=== PATIENT | female | born 2000 | race Caucasian/White ===

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

== ENCOUNTER 2021-12-06 12:30 | Emergency (ER) | payer OTHER, MEDICAID, SELFPAY ==
[2021-12-06 13:01] VITALS: BP 127/73; PULSE 94; RESP 18; TEMP 36.6; O2SAT 95; BMI 40.3
--- NOTE | 2021-12-06 15:05 | ED.HA ---
HPI - Headache General Chief Complaint: Headache Stated Complaint: headaches/neck pain Time Seen by Provider: 12/06/21 14:43 Mode of arrival: Ambulatory History of Present Illness HPI Narrative: Patient is a healthy 20-year-old female who presents with headache ongoing for the last 1 week. She says she has been taking ibuprofen pretty much around the clock she says it does help when it wears off her headache comes back. She denies any nausea or vomiting. She is not sensitive to light. She has no numbness tingling or weakness. He has really gotten headaches like this in the past. She was seen at a walk-in clinic who told her she was just dehydrated she says that she has been drinking lots of water she is not dizzy or lightheaded she has no chest pain palpitations. She also has been complaining of some head pain. But she denies any fever or chills. She is able to move her neck is now without any sort of difficulty. Related Data Previous Rx's Medication Instructions Recorded eletriptan 20 mg tablet (Relpax) 20 mg PO Q2-4H PRN migraine 12/06/21 headache #7 tabs hydrocodone 5 mg-acetaminophen 325 1 tab PO Q6H PRN pain #10 tabs 12/06/21 mg tablet Allergies Allergy/AdvReac Type Severity Reaction Status Date / Time No Known Drug Allergies Allergy Verified 12/06/21 13:07 Review of Systems Review of Systems Narrative: GENERAL: Denies chills,fever HEENT: Denies throat pain RESPIRATORY: Denies dyspnea, cough, wheezing CARDIOVASCULAR: Denies chest pain, palpitations GASTROINTESTINAL: Denies nausea, vomiting MUSCULOSKELETAL: Denies extremity pain, injury SKIN: No rash, no laceration, no pruritus NEUROLOGIC: + headache, see HPI 8 point review of systems is negative except for those stated above and HPI Patient History Social History Smoking Status: Never smoker Smoking Status: Never smoker Substance Use Type: does not use Exam Initial Vital Signs Initial Vital Signs: Vital Signs Temperature 97.8 F 12/06/21 13:01 Pulse Rate 94 H 12/06/21 13:01 Respiratory Rate 18 12/06/21 13:01 Blood Pressure 127/73 12/06/21 13:01 Pulse Oximetry 95 12/06/21 13:01 Oxygen Delivery Method 12/06/21 13:01 GENERAL: Patient is a well-appearing young 20-year-old female in no acute distress HEENT: Head atraumatic,EOMI, pupils reactive, face symmetric, moist mucous membranes NECK: Supple no vertebral tenderness or step-off CARDIOVASCULAR: Regular rate and rhythm without murmurs, rubs or gallops. RESPIRATORY: Breath sounds equal bilaterally, no wheezes rales or rhonchi. ABDOMEN: Soft, nontender. Normoactive bowel sounds all 4 quadrants. No guarding or rebound. EXTREMITIES: Normal range of motion, no clubbing or edema. Neurovascularly intact NEUROLOGICAL: Alert and oriented x4.Normal gait and speech. Label Designer strength equal bilaterally SKIN: Warm, dry, no laceration, no petechiae, no rashes or lesions. Course Orders Ordered: Discontinued Medications Acetaminophen (Acetaminophen 325 Mg Tablet) 975 mg PO NOW ONE Stop: 12/06/21 15:23 Last Admin: 12/06/21 15:45 Dose: 975 mg Documented By: KETTY Hydrocodone Bitart/Acetaminophen (Hydrocodone/Acet 5/325 Prepack) 1 bottle MISC SEEINSTR ONE Stop: 12/06/21 17:40 Last Admin: 12/06/21 18:02 Dose: 1 bottle Documented By: AT Midazolam HCl (Midazolam 2 Mg/2 Ml Vial) 2 mg IV NOW ONE Stop: 12/06/21 16:14 Last Admin: 12/06/21 16:25 Dose: 2 mg Documented By: MLM Vital Signs Vital signs: Vital Signs - 8 hr 12/06/21 13:01 Temperature 97.8 F Pulse Rate 94 H Respiratory Rate 18 Blood Pressure 127/73 Pulse Oximetry 95 Oxygen Delivery Method Room Air MDM - Headache Lab Data Result diagrams: 12/06/21 16:25 12/06/21 16:25 Labs: Lab Results 12/06/21 12/06/21 12/06/21 Range/Units 15:44 16:25 16:25 WBC 10.8 (4.5-11.0) X10^3/uL RBC 5.30 H (4.0-5.2) X10^6/uL Hgb 15.4 (12.0-16.0) g/dL Hct 45.3 (36-46) % MCV 85.5 (80-100) fL MCH 29.1 (26-34) PG MCHC 34.0 (30-36) % RDW 14.2 (11.6-14.8) % Plt Count 347 (150-400) X10^3/uL Neut % (Auto) 65.6 (50-75) % Lymph % (Auto) 27.6 (25-40) % Tyrrell % (Auto) 5.5 (3-14) % Eos % (Auto) 0.7 L (2-4) % Baso % (Auto) 0.6 (0-2) % Neut # (Auto) 7100 H (4946-2817) /uL Lymph # (Auto) 3000 (8427-4308) /uL Tyrrell # (Auto) 600 (0-900) /uL Eos # (Auto) 100 (0-450) /uL Baso # (Auto) 100 (0-100) /uL Sodium 139 (137-145) mmol/L Potassium 3.9 (3.4-5.1) mmol/L Chloride 105 (98-107) mmol/L Carbon Dioxide 25 (22-32) mmol/L BUN 10 (7-17) mg/dL Creatinine 0.61 (0.52-1.04) mg/dL Estimated GFR > 60 (>60) mL/min BUN/Creatinine Ratio 16.4 (6-22) Glucose 117 H (70-100) mg/dL Calcium 9.7 (8.4-10.2) mg/dL Total Bilirubin 0.5 (0.2-1.3) mg/dL AST 23 (14-36) IU/L ALT 20 (<35) IU/L Alkaline Phosphatase 80 (38-126) U/L Total Protein 8.5 H (6.3-8.2) g/dL Albumin 5.1 H (3.5-5.0) g/dL Globulin 3.4 (1.7-4.1) g/dL Albumin/Globulin Ratio 1.5 (1.0-2.8) SARS-CoV-2 (PCR) Negative (Negative) Imaging Data CT scan - head: Radiologist's Impression: CT Scan Report Signed Patient: Fallon Acosta MR#: [id number] : 2000 Acct:[id number] Age/Sex: 20 / F Date of Service: 12/06/21 Loc: ED Accession Number: [id number] ?? Procedure: CT head/brain wo con Ordering Provider: Odalis Giraldo D.O. PROCEDURE:? CT HEAD/BRAIN WO CON ? INDICATIONS:? new onset headahe ? TECHNIQUE:? Noncontrast 4.5 mm thick angled axial sections acquired from the foramen magnum to the vertex, with coronal and sagittal reformats.? For radiation dose reduction, the following was used:? automated exposure control, adjustment of mA and/or kV according to patient size.? ? COMPARISON:? None. ? FINDINGS:? Image quality:? Excellent.? ? CSF spaces:? Basal cisterns are patent.? No extra-axial fluid collections.? Ventricles are normal in size and shape.? ? Brain:? No midline shift.? Tiny bilateral deep white matter densities most likely represent small calcifications.? Question increased bilateral deep white matter hypodensities. ? Skull and face:? Calvarium and visualized facial bones are intact, without suspicious lesions.? ? Sinuses:? Visualized sinuses and mastoids are clear.? ? IMPRESSION:? Question diffuse process involving the deep white matter bilaterally.? This is not definite.? Also present are probable bilateral deep white matter calcifications. ? Comment:? Brain MRI with without contrast may be helpful. ? ? Dictated by: Flaco Cevallos M.D. on 12/06/2021 at 14:45 ? ? MR brain: Radiologist's Impression: Magnetic Resonance Report Signed Patient: Fallon Acosta MR#: [id number] : 2000 Acct:[id number] Age/Sex: 20 / F Date of Service: 12/06/21 Loc: ED Accession Number: [id number] ?? Procedure: MR head/brain wo/w con Ordering Provider: Odalis Giraldo D.O. PROCEDURE:? MR HEAD/BRAIN WO/W CON ? INDICATIONS:? Calcification in deep white matter ? TECHNIQUE:? Noncontrast axial T1 spin echo, axial T2 fast spin echo, sagittal and axial FLAIR, coronal T2 fast spin echo, axial gradient echo, axial diffusion and ADC through the brain.? After the administration of contrast, axial and coronal and sagittal 3D VIBE or T1 spin echo with fat saturation through the brain.? ? COMPARISON:? [facility], CT, CT HEAD/BRAIN WO CON, 12/06/2021, 15:29. ? FINDINGS:? Image quality:? Excellent.? ? CSF Spaces:? Basal cisterns are patent.? No extra-axial fluid collections.? Ventricles are normal in size and shape.? ? Brain:? No midline shift.? No intracranial bleeds or masses.? There are bilateral periventricular deep white matter changes which are greater than expected for patient age, and have an appearance where they 10 to radiate towards the lateral ventricles.? The appearance is nonspecific, but may potentially represent presence a demyelinating disorder such as multiple sclerosis.? Alternatively, this may potentially represent small vessel ischemic change secondary to migraines.? Of note, there are no signal abnormalities involving the corpus callosum.? No abnormal intracranial enhancement.? The brainstem appears normal.? Diffusion-weighted images demonstrate no acute ischemic insults.? No chronic ischemic insults.? Normal intravascular flow voids are present.? ? Skull and face:? Calvarial marrow is normal in signal.? Orbits appear normal.? ? Sinuses:? Sinuses and mastoids appear clear.? ? ? IMPRESSION:? Bilateral deep white matter changes are greater than expected for patient age.? Consider possible demyelinating disorder such as multiple sclerosis.? Alternatively, consider areas of chronic ischemia secondary to migraines.? ? ? Dictated by: Flaco Cevallos M.D. on 12/06/2021 at 16:03 ? ? Approved by: Flaco Cevallos M.D. on 12/06/2021 at 16:11 ? [facility] Narrative Medical decision making narrative: Patient overall appears well. No sign of meningitis. She does not seem to be in severe pain. However she does not typically get headaches. She had a home negative COVID test week ago, it is negative again here. Head CT today shows bilateral deep better white calcifications which are abnormal for her age. It was recommended she an MRI. MRI also shows the same possible demyelinating syndrome possible multiple sclerosis. However at this should not cause headaches. She has no weakness. She has no eye pain or visual changes. This time is not convinced that it is multiple sclerosis. It does not make sense it is some causing her pain. Is will start her on medication for migraines. She might possibly be getting rebound headaches Tylenol and ibuprofen. Recommend that she follow-up with a primary care provider she says she is not scheduled to see anyone in till January she does need to get into Neurology as well. Discharge Plan Departure Patient Disposition: Home Clinical Impression: Migraine Instructions: DI for Migraine Activity Restrictions/Additional Instructions: *You have been diagnosed with migraine headache *What to do: Today your MRI and CT did show some calcifications which may or may not be related to multiple sclerosis. This should not be causing your headaches. *Continue to take medications as directed Tylenol 1000 mg every 6 hours Ibuprofen 600 mg every 6 hours Relpax 20 mg x 1 for headache, recommend this as first-line for your headache [place] 1 tablet every 6 hours if needed for severe pain *Follow up with your primary care provider in 2-3 days or call [phone] *Return to ER if you should have worsening headache persistent vomiting weakness numbness tingling or any new, worsening or concerning symptoms CONTROLLED SUBSTANCE DISCHARGE (Narcotoic/benzodiazepine/Flexeril/Phenergan) 1. You have been prescribed narcotic medications, it does have acetaminophen/Tylenol/paracetamol in it, DO NOT TAKE MORE THAN 4,00mg in 24 hours of Tylenol. TRAMADOL DOES NOT CONTAIN TYLENOL 2. Please understand that we cannot provide further refills of narcotics, benzodiazepines or controlled substances through the ED and her pain management will need to be through your provider. 3. While on these medications you cannot drive or operate heavy machinery. 4. You cannot sign legal documents or perform any duties such as this. 5. As long as you're taking opiate pain medications he should also be taking a stool softener such as Colace, Dulcolax, MiraLAX or prune juice, to help avoid constipation. Prescriptions: New hydrocodone-acetaminophen 5-325 mg tablet 1 tab PO Q6H PRN (Reason: pain) Qty: 10 0RF eletriptan [Relpax] 20 mg tablet 20 mg PO Q2-4H PRN (Reason: migraine headache) Qty: 7 0RF Rx Instructions: do not exceed 4 doses per 24 hrs Referrals: Ganesh Timmons MD [Non-Staff] - Visit Report Forms: Patient Portal/API
--- NOTE | 2021-12-06 15:22 | DI.CT.S_ITS ---
PROCEDURE: CT HEAD/BRAIN WO CON INDICATIONS: new onset headahe TECHNIQUE: Noncontrast 4.5 mm thick angled axial sections acquired from the foramen magnum to the vertex, with coronal and sagittal reformats. For radiation dose reduction, the following was used: automated exposure control, adjustment of mA and/or kV according to patient size. COMPARISON: None. FINDINGS: Image quality: Excellent. CSF spaces: Basal cisterns are patent. No extra-axial fluid collections. Ventricles are normal in size and shape. Brain: No midline shift. Tiny bilateral deep white matter densities most likely represent small calcifications. Question increased bilateral deep white matter hypodensities. Skull and face: Calvarium and visualized facial bones are intact, without suspicious lesions. Sinuses: Visualized sinuses and mastoids are clear. IMPRESSION: Question diffuse process involving the deep white matter bilaterally. This is not definite. Also present are probable bilateral deep white matter calcifications. Comment: Brain MRI with without contrast may be helpful. Dictated by: Flaco Cevallos M.D. on 12/06/2021 at 14:45 Approved by: Flaco Cevallos M.D. on 12/06/2021 at 14:50
[2021-12-06] MEDS: ACETAMINOPHEN 325 MG TABLET 975 MG PO (15:45)
[2021-12-06 16:02] LABS: COVID19 -Nasal RAPID Negative (Negative)
--- NOTE | 2021-12-06 16:14 | DI.MRI.S_ITS ---
PROCEDURE: MR HEAD/BRAIN WO/W CON INDICATIONS: Calcification in deep white matter TECHNIQUE: Noncontrast axial T1 spin echo, axial T2 fast spin echo, sagittal and axial FLAIR, coronal T2 fast spin echo, axial gradient echo, axial diffusion and ADC through the brain. After the administration of contrast, axial and coronal and sagittal 3D VIBE or T1 spin echo with fat saturation through the brain. COMPARISON: [facility], CT, CT HEAD/BRAIN WO CON, 12/06/2021, 15:29. FINDINGS: Image quality: Excellent. CSF Spaces: Basal cisterns are patent. No extra-axial fluid collections. Ventricles are normal in size and shape. Brain: No midline shift. No intracranial bleeds or masses. There are bilateral periventricular deep white matter changes which are greater than expected for patient age, and have an appearance where they 10 to radiate towards the lateral ventricles. The appearance is nonspecific, but may potentially represent presence a demyelinating disorder such as multiple sclerosis. Alternatively, this may potentially represent small vessel ischemic change secondary to migraines. Of note, there are no signal abnormalities involving the corpus callosum. No abnormal intracranial enhancement. The brainstem appears normal. Diffusion-weighted images demonstrate no acute ischemic insults. No chronic ischemic insults. Normal intravascular flow voids are present. Skull and face: Calvarial marrow is normal in signal. Orbits appear normal. Sinuses: Sinuses and mastoids appear clear. IMPRESSION: Bilateral deep white matter changes are greater than expected for patient age. Consider possible demyelinating disorder such as multiple sclerosis. Alternatively, consider areas of chronic ischemia secondary to migraines. Dictated by: Flaco Cevallos M.D. on 12/06/2021 at 16:03 Approved by: Flaco Cevallos M.D. on 12/06/2021 at 16:11
[2021-12-06] MEDS: MIDAZOLAM 2 MG/2 ML VIAL IV (16:25)
[2021-12-06 16:43] LABS: Add Manual Diff / Slide Review NO; Basophils Absolute Auto 100 /uL (0-100); Basophils Percent Auto 0.6 % (0-2); Eosinophils Absolute Auto 100 /uL (0-450); Eosinophils Percent Auto 0.7 % (2-4); Hematocrit 45.3 % (36-46); Hemoglobin 15.4 g/dL (12.0-16.0); Lymphocytes Absolute Auto 3000 /uL (1100-4500); Lymphocytes Percent Auto 27.6 % (25-40); Mean Corpuscular Hemoglobin 29.1 PG (26-34); Mean Corpuscular Volume 85.5 fL (80-100); Monocytes Absolute Auto 600 /uL (0-900); Monocytes Percent Auto 5.5 % (3-14); Neutrophils Absolute Auto 7100 /uL (1500-7000); Neutrophils Percent Auto 65.6 % (50-75); Platelet Count 347 X10^3/uL (150-400); Red Cell Distribution Width 14.2 % (11.6-14.8); White Blood Cell Count 10.8 X10^3/uL (4.5-11.0)
[2021-12-06 16:54] LABS: Alanine Aminotransferase 20 IU/L (<35); Albumin 5.1 g/dL (3.5-5.0); Albumin Globulin Ratio 1.5 (1.0-2.8); Alkaline Phosphatase 80 U/L (38-126); Aspartate Aminotransferase 23 IU/L (14-36); BUN Creatinine Ratio 16.4 (6-22); Bilirubin Total 0.5 mg/dL (0.2-1.3); Blood Urea Nitrogen 10 mg/dL (7-17); Calcium 9.7 mg/dL (8.4-10.2); Carbon Dioxide 25 mmol/L (22-32); Chloride 105 mmol/L (98-107); Estimated Glomerular Filt Rate > 60 mL/min (>60); Globulin 3.4 g/dL (1.7-4.1); Glucose 117 mg/dL (70-100); HEMOLYSIS < 15 (0-50); Potassium 3.9 mmol/L (3.4-5.1); Sodium 139 mmol/L (137-145); Total Protein 8.5 g/dL (6.3-8.2)
[2021-12-06] MEDS: HYDROCODONE/ACET 5/325 PREPACK 1 BOTTLE MISC (18:02)
[2021-12-06 18:08] VITALS: BP 143/78; PULSE 98; RESP 16; O2SAT 99
== END 2021-12-06 18:09 | disposition home or self-care (01) ==
PROVIDERS: Emergency Provider Emergency Medicine
DX: G43.909 Migraine, unspecified, not intractable, without status migrainosus (principal); Z20.822 Contact with and (suspected) exposure to COVID-19
CPT/HCPCS: 70450; 70553; 80053; 85025; 87635; 96374; 99284; C9803; A9579; J2250

== ENCOUNTER 2022-09-21 15:29 | Emergency (ER) | payer OTHER, MEDICAID, SELFPAY ==
[2022-09-21 15:38] VITALS: BP 138/72; PULSE 68; RESP 18; TEMP 36.5; O2SAT 98; BMI 39.4
[2022-09-21 16:38] VITALS: BP 127/90; PULSE 84; O2SAT 98
[2022-09-21 16:59] LABS: Adenovirus Not Detected (Not Detect); B. parapertussis Not Detected (Not Detecte); Bordetella pertussis Not Detected (Not Detecte); Chlamydophila pneumoniae Not Detected (Not Detect); Coronavirus 229E Not Detected (Not Detect); Coronavirus HKU1 Not Detected (Not Detect); Coronavirus NL 63 Not Detected (Not Detect); Coronavirus OC43 Not Detected (Not Detect); Human Metapneumovirus Not Detected (Not Detect); Human Rhinovirus/Enterovirus Detected (Not Detect); Influenza A Not Detected (Not Detect); Influenza B Not Detected (Not Detect); Mycoplasma pneumoniae Not Detected (Not Detect); Parainfluenza Virus 1 Not Detected (Not Detect); Parainfluenza Virus 2 Not Detected (Not Detect); Parainfluenza Virus 3 Not Detected (Not Detect); Parainfluenza Virus 4 Not Detected (Not Detect); Respiratory Syncytial Virus Not Detected (Not Detect); SARS- CoV-2 Not Detected (Not Detecte)
[2022-09-21 17:00] VITALS: PULSE 77; O2SAT 98
[2022-09-21 17:30] VITALS: PULSE 81; O2SAT 98
[2022-09-21 17:31] VITALS: BP 120/50; PULSE 74; O2SAT 98
--- NOTE | 2022-09-21 17:54 | ED.GENADULT ---
HPI - General Adult <Chema Desai PA-C - Last Filed: 09/21/22 18:05> General Chief complaint: Upper Respiratory Symptoms Stated complaint: ears clogged, not eating, fever, cough, not sleepi Time Seen by Provider: 09/21/22 16:52 Source: patient Mode of arrival: Ambulatory History of Present Illness HPI narrative: 21-year-old female with a history of migraines presents to the ED with 1 week of upper respiratory symptoms including ear fullness, ear pain, sore throat, cough, nausea. Patient denies fever, chills, chest pain, shortness of breath, vomiting, abdominal pain, lightheadedness, dizziness, syncope. Patient was diagnosed with a your infection and started Augmentin on 09/19/2022. Patient came to the ED since her symptoms were not improving. Related Data Previous Rx's Medication Instructions Recorded eletriptan 20 mg tablet (Relpax) 20 mg PO Q2-4H PRN migraine 12/06/21 headache #7 tabs hydrocodone 5 mg-acetaminophen 325 1 tab PO Q6H PRN pain #10 tabs 12/06/21 mg tablet benzonatate 200 mg capsule 200 mg PO TID PRN cough #30 caps 09/21/22 ondansetron 4 mg disintegrating 4 mg PO Q8H PRN nausea and 09/21/22 tablet vomiting #14 tabs Allergies Allergy/AdvReac Type Severity Reaction Status Date / Time No Known Drug Allergies Allergy Verified 12/06/21 13:07 Review of Systems <Chema Desai PA-C - Last Filed: 09/21/22 18:05> Review of Systems ROS Unobtainable: All systems reviewed & are unremarkable except as noted in HPI and below Constitutional Constitutional: Denies chills, Denies fatigue, Denies fever(s), Denies frequent falls, Denies lethargy and Denies weakness Eyes Eyes: Denies change in vision, Denies eye discharge, Denies irritation and Denies loss of vision ENT Ears, Nose, Mouth, and Throat: Denies change in voice, Denies dizziness, Reports otalgia, Denies neck pain, Reports sore throat and Denies throat swelling Cardiovascular Cardiovascular: Denies chest pain, Denies irregular heart rhythm, Denies lightheadedness, Denies palpitations, Denies dyspnea, Denies dyspnea on exertion and Denies orthopnea Respiratory Respiratory: Denies cough, Denies dyspnea, Denies dyspnea on exertion and Denies wheezing Gastrointestinal Gastrointestinal: Denies abdominal pain, Denies change in bowel habits, Denies diarrhea, Reports nausea and Denies vomiting Genitourinary Genitourinary: Denies hematuria, Denies flank pain, Denies urinary incontinence and Denies urinary urgency Musculoskeletal Musculoskeletal: Denies back pain, Denies muscle weakness, Denies neck pain, Denies numbness and Denies tingling Integumentary/Breasts Skin/Breast: Denies pruritus, Denies erythema, Denies rash and Denies wounds Neurologic Neurologic: Denies behavioral changes, Denies confusion, Denies dizziness, Denies frequent falls, Denies loss of vision, Denies numbness, Denies tingling and Denies weakness Psychiatric Psychiatric: Denies anxiety, Denies behavioral changes, Denies confusion, Denies depression, Denies homicidal ideation and Denies suicidal ideation Endocrine Endocrine: Denies fatigue, Denies flushing and Denies palpitations Hematologic/Lymphatic Hematologic/Lymphatic: Denies easy bruising Allergic/Immunologic Allergic/Immunologic: Denies urticaria, Denies throat swelling and Denies wheezing Patient History <Chema Desai PA-C - Last Filed: 09/21/22 18:05> Social History Smoking Status: Never smoker Smoking Status: Never smoker alcohol intake frequency: holidays/special occasions only Substance Use Type: marijuana Exam <Chema Desai PA-C - Last Filed: 09/21/22 18:05> Narrative Exam Narrative: Const General:?cooperative, healthy appearing and comfortable [facility] Head:?normal to inspection Ears:?hearing grossly normal bilaterally; bilateral tympani normal; bilateral external ear canals normal Nose:?external nose normal Face and sinus:?normal facial exam and sinuses nontender Mouth:?oral mucosae normal Throat:?posterior oropharynx normal Eyes General:?appearance normal, both eyes and all related structures Neck Neck:?normal visual inspection and no lymphadenopathy noted Resp Effort & Inspection:?normal respiratory effort Auscultation:?clear to auscultation bilaterally Cardio Rate:?regular rate Rhythm:?regular rhythm Neuro General:?patient alert, patient awake and patient oriented x3 Initial Vital Signs Initial Vital Signs: Vital Signs Temperature 97.7 F 05/16/23 15:38 Pulse Rate 68 09/21/22 15:38 Respiratory Rate 18 09/21/22 15:38 Blood Pressure 138/72 09/21/22 15:38 Pulse Oximetry 98 09/21/22 15:38 Oxygen Delivery Method Room Air 09/21/22 15:38 <DO Karolina Marti Last Filed: 09/21/22 18:37> Initial Vital Signs Initial Vital Signs: Vital Signs Temperature 97.7 F 09/21/22 15:38 Pulse Rate 68 09/21/22 15:38 Respiratory Rate 18 09/21/22 15:38 Blood Pressure 138/72 09/21/22 15:38 Pulse Oximetry 98 09/21/22 15:38 Oxygen Delivery Method Room Air 09/21/22 15:38 Course <Chema Desai PA-C - Last Filed: 09/21/22 18:05> Orders Ordered: ED Orders 09/21/22 15:54 Respiratory Panel (Film Array) Stat Vital Signs Vital signs: Vital Signs - 8 hr 09/21/22 15:38 09/21/22 16:38 09/21/22 16:38 Temperature 97.7 F Pulse Rate 68 84 Respiratory Rate 18 Blood Pressure 138/72 127/90 Pulse Oximetry 98 98 Oxygen Delivery Method Room Air 09/21/22 17:00 09/21/22 17:30 09/21/22 17:31 Temperature Pulse Rate 77 81 74 Respiratory Rate Blood Pressure Pulse Oximetry 98 98 98 Oxygen Delivery Method 09/21/22 17:31 Temperature Pulse Rate Respiratory Rate Blood Pressure 120/50 L Pulse Oximetry Oxygen Delivery Method <DO Karolina Marti Last Filed: 09/21/22 18:37> Orders Ordered: ED Orders 09/21/22 15:54 Respiratory Panel (Film Array) Stat Vital Signs Vital signs: Vital Signs - 8 hr 09/21/22 15:38 09/21/22 16:38 09/21/22 16:38 Temperature 97.7 F Pulse Rate 68 84 Respiratory Rate 18 Blood Pressure 138/72 127/90 Pulse Oximetry 98 98 Oxygen Delivery Method Room Air 09/21/22 17:00 09/21/22 17:30 09/21/22 17:31 Temperature Pulse Rate 77 81 74 Respiratory Rate Blood Pressure Pulse Oximetry 98 98 98 Oxygen Delivery Method 09/21/22 17:31 Temperature Pulse Rate Respiratory Rate Blood Pressure 120/50 L Pulse Oximetry Oxygen Delivery Method Medical Decision Making <Chema Desai PA-C - Last Filed: 09/21/22 18:05> Lab Data Labs: Lab Results 09/21/22 Range/Units 15:54 Chlamy pneumoniae PCR Not detected (Not Detect) Adenovirus (PCR) Not detected (Not Detect) B. pertussis DNA (PCR) Not detected (Not Detecte) B.parapertussis DNA PCR Not detected (Not Detecte) Coronavirus OC43 (PCR) Not detected (Not Detect) Coronavirus HKU1 (PCR) Not detected (Not Detect) Coronavirus 229E (PCR) Not detected (Not Detect) SARS-CoV-2 (PCR) Not detected (Not Detecte) Coronavirus NL63 (PCR) Not detected (Not Detect) Human Metapneumovir PCR Not detected (Not Detect) Influenza Type A (PCR) Not detected (Not Detect) Influenza Type B (PCR) Not detected (Not Detect) M. pneumoniae (PCR) Not detected (Not Detect) Parainfluenza 1 (PCR) Not detected (Not Detect) Parainfluenza 2 (PCR) Not detected (Not Detect) Parainfluenza 3 (PCR) Not detected (Not Detect) Parainfluenza 4 (PCR) Not detected (Not Detect) RSV (PCR) Not detected (Not Detect) Entero/Rhino (PCR) Detected H (Not Detect) MDM Narrative Medical decision making narrative: 21-year-old female with a history of migraines presents to the ED with 1 week of upper respiratory symptoms including ear fullness, ear pain, sore throat, cough, nausea. Concern for otitis media versus upper respiratory infection versus pharyngitis versus other. Respiratory swab was positive for enterovirus/rhino virus. Physical exam is reassuring, bilateral tympani appear normal on exam. Posterior pharynx is not erythematous, no exudates, no swelling. Patient's symptoms are likely due to the URI. Recommend that patient continue her antibiotics as prescribed since the antibiotics could have already started resolving her infection. Recommend Flonase, Tylenol, ibuprofen, Tessalon Perles, Zofran for symptoms. Recommend continued hydration, PCP follow-up. ED return precautions discussed with patient. Patient verbalized understanding. Prescription sent for Zofran and Tessalon Perles. Medical records reviewed: Yes <Rob Phillips, DO - Last Filed: 09/21/22 18:37> Lab Data Labs: Lab Results 09/21/22 Range/Units 15:54 Chlamy pneumoniae PCR Not detected (Not Detect) Adenovirus (PCR) Not detected (Not Detect) B. pertussis DNA (PCR) Not detected (Not Detecte) B.parapertussis DNA PCR Not detected (Not Detecte) Coronavirus OC43 (PCR) Not detected (Not Detect) Coronavirus HKU1 (PCR) Not detected (Not Detect) Coronavirus 229E (PCR) Not detected (Not Detect) SARS-CoV-2 (PCR) Not detected (Not Detecte) Coronavirus NL63 (PCR) Not detected (Not Detect) Human Metapneumovir PCR Not detected (Not Detect) Influenza Type A (PCR) Not detected (Not Detect) Influenza Type B (PCR) Not detected (Not Detect) M. pneumoniae (PCR) Not detected (Not Detect) Parainfluenza 1 (PCR) Not detected (Not Detect) Parainfluenza 2 (PCR) Not detected (Not Detect) Parainfluenza 3 (PCR) Not detected (Not Detect) Parainfluenza 4 (PCR) Not detected (Not Detect) RSV (PCR) Not detected (Not Detect) Entero/Rhino (PCR) Detected H (Not Detect) Discharge Plan Departure Patient Disposition: Home Clinical Impression: Upper respiratory infection Activity Restrictions/Additional Instructions: You were evaluated in the ED today for a sore throat, cough, ear pain. Your respiratory panel was positive for enterovirus/rhino virus, which is basically the cold virus. It is common for upper respiratory viral infections to run their course for 1-2 weeks. You may complete the full course of antibiotics that you already started. You may take Tessalon Perles for the cough. You can continue to take Tylenol or ibuprofen for fevers, aches and pains. You may also take Flonase which is [id number] for nasal congestion and ear congestion. You were also being prescribed Zofran for nausea. Please continue to stay well hydrated. Please follow-up with your PCP as soon as possible. Return to the ED if you have chest pain or trouble breathing. Prescriptions: New ondansetron 4 mg tablet,disintegrating 4 mg PO Q8H PRN (Reason: nausea and vomiting) Qty: 14 0RF benzonatate 200 mg capsule 200 mg PO TID PRN (Reason: cough) Qty: 30 0RF No Action hydrocodone-acetaminophen 5-325 mg tablet 1 tab PO Q6H PRN (Reason: pain) Qty: 10 0RF eletriptan [Relpax] 20 mg tablet 20 mg PO Q2-4H PRN (Reason: migraine headache) Qty: 7 0RF Rx Instructions: do not exceed 4 doses per 24 hrs Stand Alone Forms: Patient Portal/API <Rob Phillips, - Last Filed: 09/21/22 18:37> [facility] Dr Phillips Co-Sign Statement: I was available for consultation during this patient's emergency department visit. This chart is signed by myself for administrative purposes only. I did not have direct contact with this patient during this visit. They were seen independently by the APC.
== END 2022-09-21 17:55 | disposition home or self-care (01) ==
PROVIDERS: Emergency Medicine; Emergency Provider Student in an Organized Health Care Education/Training Program
DX: J06.9 Acute upper respiratory infection, unspecified (principal); B34.8 Other viral infections of unspecified site; Z20.822 Contact with and (suspected) exposure to COVID-19
CPT/HCPCS: 87633; 99281; 99282

== ENCOUNTER 2023-04-16 16:03 | Observation (INO) | payer SELFPAY ==
--- NOTE | 2023-04-16 16:28 | ED.ABDPAIN ---
HPI - Abdominal Pain <Edwin Eaton PA-C - Last Filed: 04/16/23 18:48> General Chief Complaint: Abdominal Pain Stated Complaint: abd cramping/not sleeping/happens while eating Time Seen by Provider: 04/16/23 16:28 History of Present Illness HPI narrative: This is a 22-year-old female presents emergency department due to epigastric abdominal pain for the last month. She states that it is also affected her about a year ago where she tried a multitude of treatments for GERD without significant relief. She says her primary care provider got a right upper quadrant ultrasound at that time which showed gallstones and she was referred to General surgery but she was unable to make the appointment due to insurance reasons. She reports the pain improving on its own but coming back about a month ago. Is worse after eating in usually improves after a couple of hours. States that she has significant nausea during these episodes but no vomiting. Denies any diarrhea or blood in the stool. Denies any pelvic pain, vaginal discharge, vaginal bleeding, fevers, chest pain, shortness of breath, or any other concerning signs or symptoms. History of cerebral palsy with multiple orthopedic surgeries. Last ate at 3:00 p.m. today. Related Data Home Medications Medication Instructions Recorded Confirmed buspirone 5 mg tablet 5 mg PO BID 04/16/23 04/16/23 Previous Rx's Medication Instructions Recorded hydrocodone 5 mg-acetaminophen 325 1 tab PO Q8H PRN pain #10 tabs 04/17/23 mg tablet Allergies Allergy/AdvReac Type Severity Reaction Status Date / Time No Known Drug Allergies Allergy Verified 04/16/23 16:33 Review of Systems <Edwin Eaton PA-C - Last Filed: 04/16/23 18:48> Review of Systems Narrative: GENERAL: Denies chills, fatigue, malaise, fever, sweats. HEENT: Denies sinus pain, ear pain, sore throat, difficulty swallowing, dizziness. RESPIRATORY: Denies dyspnea, cough, wheezing, hemoptysis, sputum. CARDIOVASCULAR: Denies chest pain, palpitations, orthopnea, edema, GASTROINTESTINAL: Reports abdominal pain nausea Denies , vomiting, diarrhea, constipation, melena. : Denies dysuria, frequency, incontinence, hematuria, urinary retention. MUSCULOSKELETAL: denies weakness, joint pain, or bony pain SKIN: Denies rash, skin lesions, or other NEUROLOGIC: Denies weakness, headache, numbness, change in speech, confusion, seizures, incoordination. PSYCHIATRIC: No concerning psychosocial issues. 12 point review of systems is negative except for those stated above Patient History <Edwin Eaton PA-C - Last Filed: 04/16/23 18:48> Social History household members: none Smoking Status: Never smoker alcohol intake: never Smoking Status: Never smoker alcohol intake frequency: holidays/special occasions only Substance Use Type: marijuana Exam <Edwin Eaton PA-C - Last Filed: 04/16/23 18:48> Narrative Exam Narrative: GENERAL: Well-developed patient, in mild distress. HEAD: Atraumatic. Normocephalic. EYES: Pupils equal round and reactive. Extraocular motions intact. No scleral icterus. No injection or drainage. ENT: Nose without bleeding, purulent drainage. Throat without erythema, tonsillar hypertrophy or exudate. Airway patent. NECK: Trachea midline. Non tender CARDIOVASCULAR: Regular rate and rhythm without murmurs, gallops, or rubs. RESPIRATORY: Clear to auscultation. Breath sounds equal bilaterally. No wheezes, rales, or rhonchi. GASTROINTESTINAL: Mild epigastric and right upper quadrant abdominal tenderness to palpation. EXTREMITIES: No edema or joint tenderness. BACK: Nontender without deformity or crepitance. No flank tenderness. NEURO: AOx3. SKIN: No rash or erythema of visible areas Initial Vital Signs Initial Vital Signs: Vital Signs Temperature 98.8 F 04/16/23 16:31 Pulse Rate 87 04/16/23 16:31 Respiratory Rate 17 04/16/23 16:31 Blood Pressure 128/88 04/16/23 16:31 Pulse Oximetry 96 04/16/23 16:31 Oxygen Delivery Method Room Air 04/16/23 16:31 <Odalis Giraldo DO - Last Filed: 04/21/23 10:01> Initial Vital Signs Initial Vital Signs: Vital Signs Temperature 98.8 F 04/16/23 16:31 Pulse Rate 87 04/16/23 16:31 Respiratory Rate 17 04/16/23 16:31 Blood Pressure 128/88 04/16/23 16:31 Pulse Oximetry 96 04/16/23 16:31 Oxygen Delivery Method Room Air 04/16/23 16:31 Course <Edwin Eaton PA-C - Last Filed: 04/16/23 18:48> Orders Ordered: Discontinued Medications Acetaminophen (Acetaminophen 325 Mg Tablet) 650 mg PO Q6H PRN PRN Reason: Fever/Mild Pain (1-3) Last Admin: 04/16/23 21:46 Dose: 650 mg Documented By: Acetaminophen (Acetaminophen 325 Mg Tablet) 975 mg PO NOW ONE Stop: 04/17/23 10:07 Last Admin: 04/17/23 10:21 Dose: 975 mg Documented By: MARINO Hydrocodone Bitart/Acetaminophen (Hydrocodone/Acet 5/325 Tablet) 1 tab PO Q4H PRN PRN Reason: Pain, Moderate (4-6) Last Admin: 04/17/23 17:53 Dose: 1 tab Documented By: Admin: 04/17/23 13:11 Dose: 1 tab Documented By: KRISTAL Hydrocodone Bitart/Acetaminophen (Hydrocodone/Acet 5/325 Tablet) 2 tab PO Q4H PRN PRN Reason: Pain, Severe (7-10) Benzocaine (Benzocaine/Menthol 1 Freddy Pkt) 1 each PO PRN PRN PRN Reason: Sore Throat Bupivacaine HCl 30 ml/ (Epinephrine HCl 0.15 mg) 0 ml INJ NOW ONE Stop: 04/17/23 11:09 Last Admin: 04/17/23 14:27 Dose: Not Given Documented By: KRISTAL Fentanyl (Fentanyl 100 Mcg/2 Ml Inj) 0 mcg IV Q5MIN PRN PRN Reason: Pain, Severe (7-10) Fentanyl (Fentanyl 100 Mcg/2 Ml Inj) 0 mcg IV Q5M PRN PRN Reason: Pain, Moderate (4-6) Fentanyl (Fentanyl 100 Mcg/2 Ml Inj) 0 mcg IV Q5M PRN PRN Reason: Pain, Severe (7-10) Hydromorphone HCl (Hydromorphone 0.5 Mg Inj) 0.5 mg IV Q2H PRN PRN Reason: Pain, Severe (7-10) Last Admin: 04/17/23 14:33 Dose: 0.5 mg Documented By: KRISTAL Hydromorphone HCl (Hydromorphone 1 Mg Inj) 0 mg IV Q5MIN PRN PRN Reason: Pain, Mild (1-3) Hydromorphone HCl (Hydromorphone 1 Mg Inj) 0 mg IV Q5MIN PRN PRN Reason: Pain, Moderate (4-6) Last Admin: 04/17/23 12:27 Dose: 0.5 mg Documented By: Admin: 04/17/23 12:22 Dose: 0.5 mg Documented By: CG Hydromorphone HCl (Hydromorphone 1 Mg Inj) 0 mg IV Q5MIN PRN PRN Reason: Pain, Severe (7-10) Hydroxyzine HCl (Hydroxyzine 50 Mg/Ml Inj) 25 mg IM NOW PRN PRN Reason: Pain, Mild (1-3) Last Admin: 04/17/23 12:19 Dose: 25 mg Documented By: CG Piperacillin Sod/Tazobactam (Sod 4.5 gm/ Sodium Chloride) 100 mls @ 200 mls/hr IV NOW ONE Stop: 04/16/23 17:56 Last Admin: 04/16/23 18:50 Dose: 200 mls/hr Documented By: NICA Lactated Ringer's (Lactated Ringers) 1,000 mls @ 100 mls/hr IV CONT CHELSEA Last Admin: 04/17/23 13:12 Dose: 100 mls/hr Documented By: Infusion: 04/17/23 12:25 Dose: Infused Documented By: Admin: 04/17/23 08:12 Dose: 100 mls/hr Documented By: Infusion: 04/17/23 06:33 Dose: Infused Documented By: Admin: 04/16/23 20:33 Dose: 100 mls/hr Documented By: Lactated Ringer's (Lactated Ringers) 1,000 mls @ 42 mls/hr IV CONT CHELSEA Last Admin: 04/17/23 12:25 Dose: 42 mls/hr Documented By: Admin: 04/17/23 10:26 Dose: Not Given Documented By: CG Lactated Ringer's (Lactated Ringers) 1,000 mls @ 120 mls/hr IV CONT CHELSEA Last Admin: 04/17/23 14:30 Dose: Not Given Documented By: KRISTAL Piperacillin Sod/Tazobactam (Sod 3.375 gm/ Sodium Chloride) 100 mls @ 25 mls/hr IV NOW ONE Stop: 04/17/23 11:00 Last Infusion: 04/17/23 10:46 Dose: Infused Documented By: Admin: 04/17/23 10:40 Dose: 25 mls/hr Documented By: MEHDI Ibuprofen (Ibuprofen 600 Mg Tablet) 600 mg PO Q6H PRN PRN Reason: Fever/Mild Pain (1-3) Last Admin: 04/17/23 17:53 Dose: 600 mg Documented By: KRISTAL Melatonin (Melatonin 3 Mg Tablet) 6 mg PO BEDTIME CHELSEA Last Admin: 04/16/23 21:46 Dose: 6 mg Documented By: Metoclopramide HCl (Metoclopramide 10 Mg/2 Ml Inj) 10 mg IV NOW PRN PRN Reason: Nausea And Vomiting Last Admin: 04/17/23 12:38 Dose: 10 mg Documented By: MARINO Naloxone HCl (Naloxone 0.4 Mg/Ml Vial) 0.2 mg IV Q2MIN PRN PRN Reason: Opiate Reversal Ondansetron HCl (Ondansetron 4 Mg/2 Ml Inj) 4 mg IV NOW PRN PRN Reason: Nausea And Vomiting Last Admin: 04/17/23 12:19 Dose: 4 mg Documented By: MARINO Ondansetron HCl (Ondansetron 4 Mg Odt) 4 mg PO NOW PRN PRN Reason: Nausea And Vomiting Ondansetron HCl (Ondansetron 4 Mg/2 Ml Inj) 4 mg IV Q8HR PRN PRN Reason: Nausea And Vomiting Last Admin: 04/17/23 17:53 Dose: 4 mg Documented By: KRISTAL Ondansetron HCl (Ondansetron 4 Mg/2 Ml Inj) 4 mg IV NOW PRN PRN Reason: Nausea And Vomiting Oxycodone HCl (Oxycodone Ir 5 Mg Tablet) 5 mg PO PACUNOW PRN PRN Reason: Mild or moderate pain Scopolamine (Scopolamine 1 Patch) 1 patch TOP NOW ONE Stop: 04/17/23 10:07 Last Admin: 04/17/23 10:24 Dose: 1 patch Documented By: MARINO Reevaluation(s) Reevaluation #1: [id number]: Verbal report from public works technician reports cholecystitis with cholelithiasis with a stone stuck in the gallbladder neck. Pericholecystic fluid in the wall with thickening over 7 mm. Severe fatty liver disease. Consultations Consultation #1: [id number]: Discussed case with Dr. Rivas who recommended admission under his service with a clear liquid diet and NPO at midnight. Vital Signs Vital signs: Vital Signs - 8 hr 04/16/23 16:31 Temperature 98.8 F Pulse Rate 87 Respiratory Rate 17 Blood Pressure 128/88 Pulse Oximetry 96 Oxygen Delivery Method Room Air <Odalis Kristal, - Last Filed: 04/21/23 10:01> Orders Ordered: Discontinued Medications Acetaminophen (Acetaminophen 325 Mg Tablet) 650 mg PO Q6H PRN PRN Reason: Fever/Mild Pain (1-3) Last Admin: 04/16/23 21:46 Dose: 650 mg Documented By: Acetaminophen (Acetaminophen 325 Mg Tablet) 975 mg PO NOW ONE Stop: 04/17/23 10:07 Last Admin: 04/17/23 10:21 Dose: 975 mg Documented By: MARINO Hydrocodone Bitart/Acetaminophen (Hydrocodone/Acet 5/325 Tablet) 1 tab PO Q4H PRN PRN Reason: Pain, Moderate (4-6) Last Admin: 04/17/23 17:53 Dose: 1 tab Documented By: Admin: 04/17/23 13:11 Dose: 1 tab Documented By: KRISTAL Hydrocodone Bitart/Acetaminophen (Hydrocodone/Acet 5/325 Tablet) 2 tab PO Q4H PRN PRN Reason: Pain, Severe (7-10) Benzocaine (Benzocaine/Menthol 1 Freddy Pkt) 1 each PO PRN PRN PRN Reason: Sore Throat Bupivacaine HCl 30 ml/ (Epinephrine HCl 0.15 mg) 0 ml INJ NOW ONE Stop: 04/17/23 11:09 Last Admin: 04/17/23 14:27 Dose: Not Given Documented By: KRISTAL Fentanyl (Fentanyl 100 Mcg/2 Ml Inj) 0 mcg IV Q5MIN PRN PRN Reason: Pain, Severe (7-10) Fentanyl (Fentanyl 100 Mcg/2 Ml Inj) 0 mcg IV Q5M PRN PRN Reason: Pain, Moderate (4-6) Fentanyl (Fentanyl 100 Mcg/2 Ml Inj) 0 mcg IV Q5M PRN PRN Reason: Pain, Severe (7-10) Hydromorphone HCl (Hydromorphone 0.5 Mg Inj) 0.5 mg IV Q2H PRN PRN Reason: Pain, Severe (7-10) Last Admin: 04/17/23 14:33 Dose: 0.5 mg Documented By: KRISTAL Hydromorphone HCl (Hydromorphone 1 Mg Inj) 0 mg IV Q5MIN PRN PRN Reason: Pain, Mild (1-3) Hydromorphone HCl (Hydromorphone 1 Mg Inj) 0 mg IV Q5MIN PRN PRN Reason: Pain, Moderate (4-6) Last Admin: 04/17/23 12:27 Dose: 0.5 mg Documented By: Admin: 04/17/23 12:22 Dose: 0.5 mg Documented By: MARINO Hydromorphone HCl (Hydromorphone 1 Mg Inj) 0 mg IV Q5MIN PRN PRN Reason: Pain, Severe (7-10) Hydroxyzine HCl (Hydroxyzine 50 Mg/Ml Inj) 25 mg IM NOW PRN PRN Reason: Pain, Mild (1-3) Last Admin: 04/17/23 12:19 Dose: 25 mg Documented By: MARINO Piperacillin Sod/Tazobactam (Sod 4.5 gm/ Sodium Chloride) 100 mls @ 200 mls/hr IV NOW ONE Stop: 04/16/23 17:56 Last Admin: 04/16/23 18:50 Dose: 200 mls/hr Documented By: NICA Lactated Ringer's (Lactated Ringers) 1,000 mls @ 100 mls/hr IV CONT CHELSEA Last Admin: 04/17/23 13:12 Dose: 100 mls/hr Documented By: Infusion: 04/17/23 12:25 Dose: Infused Documented By: Admin: 04/17/23 08:12 Dose: 100 mls/hr Documented By: Infusion: 04/17/23 06:33 Dose: Infused Documented By: Admin: 04/16/23 20:33 Dose: 100 mls/hr Documented By: MS Lactated Ringer's (Lactated Ringers) 1,000 mls @ 42 mls/hr IV CONT CHELSEA Last Admin: 04/17/23 12:25 Dose: 42 mls/hr Documented By: Admin: 04/17/23 10:26 Dose: Not Given Documented By: CG Lactated Ringer's (Lactated Ringers) 1,000 mls @ 120 mls/hr IV CONT CHELSEA Last Admin: 04/17/23 14:30 Dose: Not Given Documented By: KRISTAL Piperacillin Sod/Tazobactam (Sod 3.375 gm/ Sodium Chloride) 100 mls @ 25 mls/hr IV NOW ONE Stop: 04/17/23 11:00 Last Infusion: 04/17/23 10:46 Dose: Infused Documented By: Admin: 04/17/23 10:40 Dose: 25 mls/hr Documented By: MEHDI Ibuprofen (Ibuprofen 600 Mg Tablet) 600 mg PO Q6H PRN PRN Reason: Fever/Mild Pain (1-3) Last Admin: 04/17/23 17:53 Dose: 600 mg Documented By: KRISTAL Melatonin (Melatonin 3 Mg Tablet) 6 mg PO BEDTIME CHELSEA Last Admin: 04/16/23 21:46 Dose: 6 mg Documented By: Metoclopramide HCl (Metoclopramide 10 Mg/2 Ml Inj) 10 mg IV NOW PRN PRN Reason: Nausea And Vomiting Last Admin: 04/17/23 12:38 Dose: 10 mg Documented By: MARINO Naloxone HCl (Naloxone 0.4 Mg/Ml Vial) 0.2 mg IV Q2MIN PRN PRN Reason: Opiate Reversal Ondansetron HCl (Ondansetron 4 Mg/2 Ml Inj) 4 mg IV NOW PRN PRN Reason: Nausea And Vomiting Last Admin: 04/17/23 12:19 Dose: 4 mg Documented By: MARINO Ondansetron HCl (Ondansetron 4 Mg Odt) 4 mg PO NOW PRN PRN Reason: Nausea And Vomiting Ondansetron HCl (Ondansetron 4 Mg/2 Ml Inj) 4 mg IV Q8HR PRN PRN Reason: Nausea And Vomiting Last Admin: 04/17/23 17:53 Dose: 4 mg Documented By: KRISTAL Ondansetron HCl (Ondansetron 4 Mg/2 Ml Inj) 4 mg IV NOW PRN PRN Reason: Nausea And Vomiting Oxycodone HCl (Oxycodone Ir 5 Mg Tablet) 5 mg PO PACUNOW PRN PRN Reason: Mild or moderate pain Scopolamine (Scopolamine 1 Patch) 1 patch TOP NOW ONE Stop: 04/17/23 10:07 Last Admin: 04/17/23 10:24 Dose: 1 patch Documented By: MARINO Vital Signs Vital signs: Vital Signs - 8 hr 04/16/23 16:31 Temperature 98.8 F Pulse Rate 87 Respiratory Rate 17 Blood Pressure 128/88 Pulse Oximetry 96 Oxygen Delivery Method Room Air MDM - Abdominal Pain <Edwin Eaton PA-C - Last Filed: 04/16/23 18:48> Lab Data 04/17/23 06:55 04/17/23 06:55 Labs: Lab Results 04/16/23 04/16/23 Range/Units 16:36 16:50 WBC 7.8 (4.5-11.0) X10^3/uL RBC 4.99 (4.0-5.2) X10^6/uL Hgb 14.9 (12.0-16.0) g/dL Hct 43.2 (36-46) % MCV 86.4 (80-100) fL MCH 29.8 (26-34) PG MCHC 34.5 (30-36) % RDW 13.5 (11.6-14.8) % Plt Count 330 (150-400) X10^3/uL Neut % (Auto) 57.4 (50-75) % Lymph % (Auto) 34.1 (25-40) % [place] % (Auto) 5.0 (3-14) % Eos % (Auto) 2.3 (2-4) % Baso % (Auto) 1.2 (0-2) % Neut # (Auto) 4500 (2722-5494) /uL Lymph # (Auto) 2600 (6823-0469) /uL [place] # (Auto) 400 (0-900) /uL Eos # (Auto) 200 (0-450) /uL Baso # (Auto) 100 (0-100) /uL Sodium 136 L (137-145) mmol/L Potassium 4.2 (3.4-5.1) mmol/L Chloride 103 (98-107) mmol/L Carbon Dioxide 24 (22-32) mmol/L BUN 16 (7-17) mg/dL Creatinine 0.53 (0.52-1.04) mg/dL Estimated GFR > 60 (>60) mL/min BUN/Creatinine Ratio 30.2 H (6-22) Glucose 94 (70-100) mg/dL Lactate 1.1 (0.7-2.1) mmol/L Calcium 9.9 (8.4-10.2) mg/dL Total Bilirubin 0.7 (0.2-1.3) mg/dL AST 33 (14-36) IU/L ALT 41 H (<35) IU/L Alkaline Phosphatase 60 (38-126) U/L Total Protein 8.4 H (6.3-8.2) g/dL Albumin 4.7 (3.5-5.0) g/dL Globulin 3.7 (1.7-4.1) g/dL Albumin/Globulin Ratio 1.3 (1.0-2.8) Lipase 79 (23-300) U/L Urine Color Yellow Urine Appearance Clear Urine pH 6.5 (4.5-8.0) Ur Specific [place] <=1.005 (1.000-1.035) Urine Protein Negative (Negative) Urine Glucose (UA) Negative (Negative) g/dL Urine Ketones Negative (NEGATIVE) Urine Occult Blood 3+ H (Negative) Urine Nitrate Negative (Negative) Urine Bilirubin Negative (NEGATIVE) Urine Urobilinogen 0.2 (0.2) E.U./dL Ur Leukocyte Esterase Negative (NEGATIVE) Urine RBC 5-10/hpf H (0-5/HPF) Urine WBC 5-10/hpf H (0-5/HPF) Ur Squamous Epith Cells None seen (0-5/HPF) Urine Bacteria Few (2-10) H (None) Ur Culture Indicated? Specimen cultured Urine Test Negative (Negative) Imaging Data US - abdomen: Radiologist's Impression: [place] [address] Ultrasound Report Signed Patient: Fallon Acosta MR#: [id number] : 2000 Acct:[id number] Age/Sex: 22 / F Date of Service: 04/16/23 Loc: 90B-1 Accession Number: [id number] Procedure: US abdomen limited Ordering Provider: Edwin Eaton P.A-C PROCEDURE: US ABDOMEN LIMITED INDICATIONS: RIGHT UPPER QUADRANT AND EPIGASTRIC PAIN. H/O GALLSTONES TECHNIQUE: Real-time scanning was performed of the abdominal and retroperitoneal organs, with image documentation. COMPARISON: None. FINDINGS: Liver: Liver is normal in size. There is mild to severe increased echogenicity of the liver. Gallbladder: Multiple gallstones within the gallbladder largest measuring up to 1.5 cm. Additional gallbladder stones within the neck measuring 8.4 mm. Multifocal gallbladder wall thickening measuring up to 7 mm. Pericholecystic fluid is present. Negative sonographic sign per gaggerman. Biliary ducts: Intrahepatic bile ducts are non-dilated. Extrahepatic bile duct caliber measures is not well seen. Normal is 6-7 mm or less in diameter, or 10 mm or less post-cholecystectomy. IMPRESSION: Acute cholecystitis. Dictated by: Frank Farley M.D. on 04/16/2023 at 17:26 Approved by: Frank Farley M.D. on 04/16/2023 at 17:31 MDM Narrative Medical decision making narrative: MDM * differential diagnosis includes but not limited to cholecystitis, choledocholithiasis, cholangitis, fatty liver disease, pancreatitis, appendicitis, diverticulitis * Prior records reviewed: Patient was seen here 7 months ago due to upper respiratory infection. * My lab interpretation: CBC unremarkable, no leukocytosis. Creatinine within normal limits. Very mild hyponatremia. Bili Myers within normal limits. Lipase within normal limits. UA showed no evidence of leukocytes or nitrites. negative. Alk-phos within normal limits. * My imgaing interpretation: Ultrasound showed acute cholecystitis * Clinical Decision Rules/Scores evaluated: None * Independent discussions with: None ED Course: This is a 22-year-old female presents to the emergency department due to epigastric and upper abdominal pain over the last year. She says that it began about a year ago and she was seen by her primary care provider who or ultrasound which showed gallstones, they referred her to General surgery but she was unable to meet with them due to insurance reasons. She states that the pains and worsening over the last month with some nausea. Right upper quadrant ultrasound ordered which showed cholecystitis, cholelithiasis, pericholecystic fluid. Lab work unremarkable. Case was discussed with Dr. Rivas, general surgeon, who recommended admission, NPO midnight, and will plan to see the patient for surgery tomorrow at 11:00 a.m.. Zosyn ordered. Shared Decision Making: Discussed plan with the patient was comfortable with the plan. Social Considerations: None Disposition: Admitted for surgery <Odalis Giraldo, - Last Filed: 04/21/23 10:01> Lab Data Labs: Lab Results 04/16/23 04/16/23 Range/Units 16:36 16:50 WBC 7.8 (4.5-11.0) X10^3/uL RBC 4.99 (4.0-5.2) X10^6/uL Hgb 14.9 (12.0-16.0) g/dL Hct 43.2 (36-46) % MCV 86.4 (80-100) fL MCH 29.8 (26-34) PG MCHC 34.5 (30-36) % RDW 13.5 (11.6-14.8) % Plt Count 330 (150-400) X10^3/uL Neut % (Auto) 57.4 (50-75) % Lymph % (Auto) 34.1 (25-40) % [place] % (Auto) 5.0 (3-14) % Eos % (Auto) 2.3 (2-4) % Baso % (Auto) 1.2 (0-2) % Neut # (Auto) 4500 (5624-2471) /uL Lymph # (Auto) 2600 (3209-8789) /uL [place] # (Auto) 400 (0-900) /uL Eos # (Auto) 200 (0-450) /uL Baso # (Auto) 100 (0-100) /uL Sodium 136 L (137-145) mmol/L Potassium 4.2 (3.4-5.1) mmol/L Chloride 103 (98-107) mmol/L Carbon Dioxide 24 (22-32) mmol/L BUN 16 (7-17) mg/dL Creatinine 0.53 (0.52-1.04) mg/dL Estimated GFR > 60 (>60) mL/min BUN/Creatinine Ratio 30.2 H (6-22) Glucose 94 (70-100) mg/dL Lactate 1.1 (0.7-2.1) mmol/L Calcium 9.9 (8.4-10.2) mg/dL Total Bilirubin 0.7 (0.2-1.3) mg/dL AST 33 (14-36) IU/L ALT 41 H (<35) IU/L Alkaline Phosphatase 60 (38-126) U/L Total Protein 8.4 H (6.3-8.2) g/dL Albumin 4.7 (3.5-5.0) g/dL Globulin 3.7 (1.7-4.1) g/dL Albumin/Globulin Ratio 1.3 (1.0-2.8) Lipase 79 (23-300) U/L Urine Color Yellow Urine Appearance Clear Urine pH 6.5 (4.5-8.0) Ur Specific [place] <=1.005 (1.000-1.035) Urine Protein Negative (Negative) Urine Glucose (UA) Negative (Negative) g/dL Urine Ketones Negative (NEGATIVE) Urine Occult Blood 3+ H (Negative) Urine Nitrate Negative (Negative) Urine Bilirubin Negative (NEGATIVE) Urine Urobilinogen 0.2 (0.2) E.U./dL Ur Leukocyte Esterase Negative (NEGATIVE) Urine RBC 5-10/hpf H (0-5/HPF) Urine WBC 5-10/hpf H (0-5/HPF) Ur Squamous Epith Cells None seen (0-5/HPF) Urine Bacteria Few (2-10) H (None) Ur Culture Indicated? Specimen cultured Urine Test Negative (Negative) Discharge Plan Departure Patient Disposition: Admitted to Surgery Clinical Impression: Acute cholecystitis Admit Date/Time: 04/16/23 18:05 Admit Provider: Emeterio Rivas ED Sign-out <Odalis Giraldo DO - Last Filed: 04/21/23 10:01> Cosign ED Attending Cosignature Attestation: I was available for consultation.
[2023-04-16 16:31] VITALS: BP 128/88; PULSE 87; RESP 17; TEMP 37.1; O2SAT 96; BMI 38.6
--- NOTE | 2023-04-16 16:38 | DI.US.S_ITS ---
PROCEDURE: US ABDOMEN LIMITED INDICATIONS: RIGHT UPPER QUADRANT AND EPIGASTRIC PAIN. H/O GALLSTONES TECHNIQUE: Real-time scanning was performed of the abdominal and retroperitoneal organs, with image documentation. COMPARISON: None. FINDINGS: Liver: Liver is normal in size. There is mild to severe increased echogenicity of the liver. Gallbladder: Multiple gallstones within the gallbladder largest measuring up to 1.5 cm. Additional gallbladder stones within the neck measuring 8.4 mm. Multifocal gallbladder wall thickening measuring up to 7 mm. Pericholecystic fluid is present. Negative sonographic sign per meal temperer. Biliary ducts: Intrahepatic bile ducts are non-dilated. Extrahepatic bile duct caliber measures is not well seen. Normal is 6-7 mm or less in diameter, or 10 mm or less post-cholecystectomy. IMPRESSION: Acute cholecystitis. Dictated by: Frank Farley M.D. on 04/16/2023 at 17:26 Approved by: Frank Farley M.D. on 04/16/2023 at 17:31
[2023-04-16 17:04] LABS: Add Manual Diff / Slide Review NO; Basophils Absolute Auto 100 /uL (0-100); Basophils Percent Auto 1.2 % (0-2); Eosinophils Absolute Auto 200 /uL (0-450); Eosinophils Percent Auto 2.3 % (2-4); Hematocrit 43.2 % (36-46); Hemoglobin 14.9 g/dL (12.0-16.0); Lymphocytes Absolute Auto 2600 /uL (1100-4500); Lymphocytes Percent Auto 34.1 % (25-40); Mean Corpuscular HGB Conc 34.5 % (30-36); Mean Corpuscular Hemoglobin 29.8 PG (26-34); Mean Corpuscular Volume 86.4 fL (80-100); Monocytes Absolute Auto 400 /uL (0-900); Neutrophils Absolute Auto 4500 /uL (1500-7000); Neutrophils Percent Auto 57.4 % (50-75); Platelet Count 330 X10^3/uL (150-400); Red Blood Cell Count 4.99 X10^6/uL (4.0-5.2); Red Cell Distribution Width 13.5 % (11.6-14.8); White Blood Cell Count 7.8 X10^3/uL (4.5-11.0)
[2023-04-16 17:11] LABS: Alanine Aminotransferase 41 IU/L (<35); Albumin 4.7 g/dL (3.5-5.0); Albumin Globulin Ratio 1.3 (1.0-2.8); Alkaline Phosphatase 60 U/L (38-126); Aspartate Aminotransferase 33 IU/L (14-36); BUN Creatinine Ratio 30.2 (6-22); Bilirubin Total 0.7 mg/dL (0.2-1.3); Blood Urea Nitrogen 16 mg/dL (7-17); Calcium 9.9 mg/dL (8.4-10.2); Carbon Dioxide 24 mmol/L (22-32); Chloride 103 mmol/L (98-107); Estimated Glomerular Filt Rate > 60 mL/min (>60); Globulin 3.7 g/dL (1.7-4.1); Glucose 94 mg/dL (70-100); Lipase 79 U/L (23-300); Potassium 4.2 mmol/L (3.4-5.1); Sodium 136 mmol/L (137-145); Total Protein 8.4 g/dL (6.3-8.2)
[2023-04-16 17:14] LABS: HEMOLYSIS 85 (0-50)
[2023-04-16 17:36] LABS: Appearance Urine UA CLEAR; Bilirubin Urine UA NEGATIVE (NEGATIVE); Color Urine UA YELLOW; Glucose Urine UA NEGATIVE (Negative); Ketones Urine UA NEGATIVE (NEGATIVE); Leukocyte Esterase Urine UA NEGATIVE (NEGATIVE); Nitrite Urine UA NEGATIVE (Negative); Occult Blood Urine UA 3+ (Negative); Protein Urine UA NEGATIVE (Negative); Specific Gravity Urine UA <=1.005 (1.000-1.035); Urobilinogen Urine UA 0.2 E.U./dL (0.2)
[2023-04-16 17:41] LABS: pH Urine UA 6.5 (4.5-8.0)
[2023-04-16 17:42] LABS: Pregnancy Test Urine Negative (Negative)
[2023-04-16 17:45] LABS: Bacteria Urine Few (2-10); Culture Indicated Urine Specimen Cultured; RBC Urine 5-10/HPF (0-5/HPF); Squamous Epithelial Cell Urine None Seen (0-5/HPF); WBC Urine 5-10/HPF (0-5/HPF)
[2023-04-16 18:12] LABS: Lactate (Lactic Acid) 1.1 mmol/L (0.7-2.1)
[2023-04-16] MEDS: PIPERACILLIN/TAZO 4.5 GM in SODIUM CHLORIDE 0.9% 100 ML IV (18:50)
[2023-04-16] MEDS: LACTATED RINGERS 1,000 ML 100 ML IV (20:33)
[2023-04-16 20:42] VITALS: BMI 38.6
[2023-04-16] MEDS: MELATONIN 3 MG TABLET 6 MG PO (21:46)
[2023-04-16] MEDS: ACETAMINOPHEN 325 MG TABLET 650 MG PO (21:46)
[2023-04-16 21:52] VITALS: BP 134/87; PULSE 81; RESP 16; TEMP 36.5; O2SAT 97
[2023-04-17] VITALS (12 sets, daily range): BP systolic 112–147; BP diastolic 60–96; PULSE 62–101; RESP 16–31; TEMP 35.9–36.7; O2SAT 93–100; BMI 38.6
--- NOTE | 2023-04-17 | PATH_ITS ---
[facility] Accession Number: [id number] No. of containers..01 Tissue . 01 Material submitted: . gallbladder - GALLBLADDER . 01 Diagnosis: Gallbladder, Cholecystectomy: Acute with chronic cholecystitis and cholelithiasis. Negative for dysplasia and neoplasia. MRV 04/27/2023 1942 Local . 01 Electronically signed: . Sandra Richards MD, Pathologist NPI- [id number] . 01 Gross description: . The specimen is received in formalin, labeled with the patient's name, , and gallbladder, and consists of an intact gallbladder measuring 7.8 x 3.0 x 2.7 cm with an unremarkable external surface. The cystic duct margin is inked blue. No pericystic lymph node is identified. The lumen is filled with green, gelatinous bile admixed with multiple yellow bosselated calculi measuring up to 1.3 cm in greatest dimension grossly obstructing the cystic duct. The mucosa is amos and velvety with numerous yellow areas of discoloration. No polyps or lesions are identified. The matias average 0.2 cm thick. Agricultural Economics Teacher sections to include the cystic duct margin and full-thickness sections are submitted in cassette A1. ([id number]) /FRR 04/20/2023 0340 Local . 01 Pathologist provided ICD-10: K80.20 . 01 CPT . 895855 Specimen Comment: A courtesy copy of this report has been sent to [phone] Performed at: 01 [facility] [address] [place] [address], [place], [place] [id number] MD Ranjan Moore MD Phone: [phone]
[2023-04-17 07:36] LABS: Add Manual Diff / Slide Review NO; Basophils Absolute Auto 0 /uL (0-100); Basophils Percent Auto 0.4 % (0-2); Eosinophils Absolute Auto 200 /uL (0-450); Eosinophils Percent Auto 2.3 % (2-4); Hemoglobin 13.7 g/dL (12.0-16.0); Lymphocytes Absolute Auto 2300 /uL (1100-4500); Lymphocytes Percent Auto 33.5 % (25-40); Mean Corpuscular HGB Conc 34.3 % (30-36); Mean Corpuscular Hemoglobin 29.6 PG (26-34); Mean Corpuscular Volume 86.4 fL (80-100); Monocytes Absolute Auto 400 /uL (0-900); Monocytes Percent Auto 6.1 % (3-14); Neutrophils Absolute Auto 3900 /uL (1500-7000); Neutrophils Percent Auto 57.7 % (50-75); Platelet Count 309 X10^3/uL (150-400); Red Blood Cell Count 4.63 X10^6/uL (4.0-5.2); Red Cell Distribution Width 13.6 % (11.6-14.8); White Blood Cell Count 6.9 X10^3/uL (4.5-11.0)
[2023-04-17 07:53] LABS: Alanine Aminotransferase 34 IU/L (<35); Albumin 4.1 g/dL (3.5-5.0); Albumin Globulin Ratio 1.3 (1.0-2.8); Alkaline Phosphatase 68 U/L (38-126); Aspartate Aminotransferase 27 IU/L (14-36); Bilirubin Total 0.7 mg/dL (0.2-1.3); Blood Urea Nitrogen 13 mg/dL (7-17); Calcium 9.5 mg/dL (8.4-10.2); Carbon Dioxide 25 mmol/L (22-32); Chloride 106 mmol/L (98-107); Estimated Glomerular Filt Rate > 60 mL/min (>60); Globulin 3.2 g/dL (1.7-4.1); Glucose 96 mg/dL (70-100); HEMOLYSIS < 15 (0-50); Sodium 137 mmol/L (137-145); Total Protein 7.3 g/dL (6.3-8.2)
[2023-04-17] MEDS: LACTATED RINGERS 1,000 ML 100 ML IV ×2 (08:12→13:12)
[2023-04-17] MEDS: ACETAMINOPHEN 325 MG TABLET 975 MG PO (10:21)
--- NOTE | 2023-04-17 10:21 | PM.HP.1 ---
History of Present Illness History of Present Illness Date Patient Seen: 04/17/23 Time Patient Seen: 10:21 Chief complaint: abd cramping/not sleeping/happens while eating Narrative: Anesthesia is a 22-year-old woman who has had gallstones for at least a year. She developed worsening epigastric and left upper quadrant pain in the past several days and presented to the emergency department. A ultrasound showed pericholecystic fluid and gallbladder wall thickening to 7 mm consistent with acute cholecystitis. She has never had any prior abdominal surgery. [facility] Social History household members: none Smoking Status: Never smoker alcohol intake: never Meds Home Medications and Allergies Home Medications Medication Instructions Recorded Confirmed Type buspirone 5 mg tablet 5 mg PO BID 04/16/23 04/16/23 History Allergies Allergy/AdvReac Type Severity Reaction Status Date / Time No Known Drug Allergies Allergy Verified 04/16/23 16:33 Exam Vital Signs (past 8 hours): - 04/17/23 04:44 04/17/23 10:17 Temperature 96.9 F L 98.1 F Pulse Rate 68 91 H Respiratory Rate 16 20 Blood Pressure 114/60 132/82 Pulse Oximetry 96 98 Oxygen Delivery Method Room Air Oxygen Flow Rate 0 Oxygen Delivery Method Room Air Oxygen Flow Rate 0 Const General: No acute distress Nutritional Appearance: overweight Resp Effort & Inspection: normal respiratory effort GI Other: Abdomen soft No Garcia sign Objective Labs 04/17/23 06:55 04/17/23 06:55 Labs: Laboratory Results - last 24 hr 04/16/23 04/16/23 04/17/23 16:36 16:50 06:55 WBC 7.8 6.9 RBC 4.99 4.63 Hgb 14.9 13.7 Hct 43.2 40.0 MCV 86.4 86.4 MCH 29.8 29.6 MCHC 34.5 34.3 RDW 13.5 13.6 Plt Count 330 309 Neut % (Auto) 57.4 57.7 Lymph % (Auto) 34.1 33.5 [place] % (Auto) 5.0 6.1 Eos % (Auto) 2.3 2.3 Baso % (Auto) 1.2 0.4 Neut # (Auto) 4500 3900 Lymph # (Auto) 2600 2300 [place] # (Auto) 400 400 Eos # (Auto) 200 200 Baso # (Auto) 100 0 Sodium 136 L 137 Potassium 4.2 4.0 Chloride 103 106 Carbon Dioxide 24 25 BUN 16 13 Creatinine 0.53 0.59 Estimated GFR > 60 > 60 BUN/Creatinine Ratio 30.2 H 22.0 Glucose 94 96 Lactate 1.1 Calcium 9.9 9.5 Total Bilirubin 0.7 0.7 AST 33 27 ALT 41 H 34 Alkaline Phosphatase 60 68 Total Protein 8.4 H 7.3 Albumin 4.7 4.1 Globulin 3.7 3.2 Albumin/Globulin Ratio 1.3 1.3 Lipase 79 Urine Color Yellow Urine Appearance Clear Urine pH 6.5 Ur Specific [place] <=1.005 Urine Protein Negative Urine Glucose (UA) Negative Urine Ketones Negative Urine Occult Blood 3+ H Urine Nitrate Negative Urine Bilirubin Negative Urine Urobilinogen 0.2 Ur Leukocyte Esterase Negative Urine RBC 5-10/hpf H Urine WBC 5-10/hpf H Ur Squamous Epith Cells None seen Urine Bacteria Few (2-10) H Ur Culture Indicated? Specimen cultured Urine Test Negative Assessment & Plan Assessment and plan (1) Acute cholecystitis: Status: Acute Plan 22-year-old woman with symptomatic cholelithiasis versus acute cholecystitis. We reviewed the risks benefits and rationale for laparoscopic cholecystectomy and she would like to proceed.
[2023-04-17] MEDS: SCOPOLAMINE 1 PATCH TOP (10:24)
[2023-04-17] MEDS: PIPERACILLIN/TAZO 3.375 GM in SODIUM CHLORIDE 0.9% 100 ML IV (10:40)
--- NOTE | 2023-04-17 10:52 | SUR.OPER ---
Supine on padded OR bed, head on pillow, safety belt at thigh, left arm padded and tucked at side. Right arm secured on padded arm board <90 degrees abduction. Legs uncrossed. Padded footboard in place. Tape over blanket to secure lower legs.
--- NOTE | 2023-04-17 12:12 | PM.OP.1 ---
Operative Date/Time/Diagnoses Date of procedure: 04/17/23 Time of procedure: 12:12 Pre-op diagnosis: Acute cholecystitis Post-op diagnosis: same Procedure & Clinicians Procedure: Laparoscopic cholecystectomy Same procedure as scheduled: Yes Surgeon: Emeterio Rivas Anesthesia Type: General Operative Notes Procedure in detail: The patient was given preoperative antibiotics. The patient was brought to the operating room and placed on the table in the supine position. General endotracheal anesthesia was induced. The abdomen was prepped and draped. A time-out was performed. We made a 1 cm infraumbilical incision. We dissected down to the base of the umbilical stalk using cautery. We grasped the umbilical stalk with a Chon clamp to elevate the abdominal wall. We scored the fascia in the midline with cautery. We pierced the peritoneum with a Peon clamp. The Yani port was placed and the abdomen was insufflated to 15 mmHg. A 5 mm 30 degree laparoscopic was inserted. There was no evidence of any injury from the entry. Next, we placed 5 mm ports in the subxiphoid position and right upper quadrant at the midclavicular line and anterior axillary line. The patient was then positioned in reverse Trendelenburg and the table was tilted to the left. The gallbladder was grasped at the dome and retracted cephalad. There were multiple adhesions of visceral adipose tissue to the gallbladder and liver. These were carefully dissected with a combination of hook cautery and blunt dissection. It was clear there were at least 2 large stones within the gallbladder infundibulum. We then dissected the cystic structures with a combination of hook cautery and blunt dissection. We obtained a critical view. We placed clips on the cystic duct and artery and divided the cystic duct and artery sharply between the clips. The gallbladder was then dissected off the liver and placed in a specimen retrieval bag. We irrigated the right upper quadrant and all the aspirate returned clear. We then removed the 5 mm ports under direct vision we removed the Yani port. We then injected some local into the fascia and closed the fascia with 2 interrupted 0 Vicryl sutures. The skin incisions were closed with 4-0 Monocryl and Steri-Strips were applied. Band-Aids were applied over the Steri-Strips. EBL: 20 mL Specimen: Gallbladder and contents Post-operative Condition: stable Disposition: PACU
[2023-04-17] MEDS: hydrOXYzine 50 MG/ML INJ 25 MG IM (12:19)
[2023-04-17] MEDS: ONDANSETRON 4 MG/2 ML INJ IV ×2 (12:19→17:53)
[2023-04-17] MEDS: HYDROMORPHONE 1 MG INJ IV ×2 (12:22→12:27)
[2023-04-17] MEDS: LACTATED RINGERS 1,000 ML 42 ML IV (12:25)
[2023-04-17] MEDS: METOCLOPRAMIDE 10 MG/2 ML INJ IV (12:38)
--- NOTE | 2023-04-17 13:01 | PC.NURSE ---
Pt returned from PACU at 1245, A&Ox4, c/o nausea and moderate pain to abdomen. 4 bandaids to abdomen c/d/i, ice pack in place. VSS on RA. Family at bedside. Call light within reach, bed in low position.
--- NOTE | 2023-04-17 13:05 | CM.DANOTE ---
Brief DCP Assessment Note Patient is a 22yo F here from [place] for acute cholecystitis. Lap jimi with Dr. Rivas PCP None listed Payer Self pay. Per collection notes, patient was given [place] packet. INSPECTOR CRYSTAL reviewed EMR. Patient was in surgery when attempted to complete discharge assessment. Per nursing staff, likely to d/c soon after operation from OR. RN reports supportive family and supportive partner. Per RN note, pt A/Ox4 with family support at bedside. No CM needs identified at this time. Plan: home with family support when stable, potentially today. No CM needs identified at this time. CM team will follow as needed. SELENE Saucedo Discharge Planning/Care Management CM Discharge Assessment Start: 04/17/23 13:03 Freq: Status: Active Protocol: Document 04/17/23 13:03 (Rec: 04/17/23 13:05 [id number]) Discharge Planning Assessment Assigned Delivery Rn SELENE Barnett DPOA/Assigned Designee Name Feliz Naidu Contact Information [phone] Advance Directives? No History Provided By Medical Record Prior Living Arrangements Apartment/Condo Household Members none Independent with ADL's Yes Is patient alert and oriented? Yes Barriers to Discharge No Discharge Plan Home Referrals Initiated None needed Whiteboard Updated in Patient Room with No name and ext. # of Delivery Rn Review Status In Process Next Review Type Continued Stay Review
[2023-04-17] MEDS: HYDROCODONE/ACET 5/325 TABLET 1 TAB PO ×2 (13:11→17:53)
[2023-04-17] MEDS: HYDROMORPHONE 0.5 MG INJ IV (14:33)
[2023-04-17] MEDS: IBUPROFEN 600 MG TABLET PO (17:53)
--- NOTE | 2023-04-17 18:57 | PC.NURSE ---
Pt discharged home at 1840, escorted off floor in wheelchair accompanied by friend and hospital staff. IV removed, discharge teaching completed including new meds, wound care and follow up appointments. Questions and concerns addressed. Patient left floor with all belongings.
== END 2023-04-17 18:59 | disposition home or self-care (01) ==
LOC: ED 17:23 → AC 18:19
PROVIDERS: Admitting Provider Surgery; Emergency Provider Physician Assistant Medical; Referring Provider Physician Assistant Medical; Visit Provider Surgery
PROC: 0FT44ZZ Resection of Gallbladder, Percutaneous Endoscopic Approach (ICD-10-PCS; CPT 47562; principal; 2023-04-17 11:00)
DX: K80.00 Calculus of gallbladder with acute cholecystitis without obstruction (principal)
CPT/HCPCS: 47562; 36415; 76705; 80053; 81001; 81025; 83605; 83690; 85025; 87040; 87077; 87086; 96374; 96375; 96376; 99221; 99284; 99285; G0378; J1100; J1170; J1885; J2250; J2405; J2543; J2704; J2765; J3010; J3410; J3490

== ENCOUNTER → 2023-08-15 12:55 | Outpatient (CLI) | payer OTHER, MEDICAID, SELFPAY ==
[2023-08-15 13:55] LABS: Add Manual Diff / Slide Review NO; Basophils Absolute Auto 0 /uL (0-100); Basophils Percent Auto 0.3 % (0-2); Eosinophils Absolute Auto 100 /uL (0-450); Eosinophils Percent Auto 0.8 % (2-4); Hematocrit 40.3 % (36-46); Hemoglobin 13.8 g/dL (12.0-16.0); Lymphocytes Absolute Auto 2000 /uL (1100-4500); Lymphocytes Percent Auto 22.5 % (25-40); Mean Corpuscular HGB Conc 34.1 % (30-36); Mean Corpuscular Hemoglobin 29.5 PG (26-34); Mean Corpuscular Volume 86.6 fL (80-100); Monocytes Absolute Auto 500 /uL (0-900); Monocytes Percent Auto 5.5 % (3-14); Neutrophils Absolute Auto 6200 /uL (1500-7000); Neutrophils Percent Auto 70.9 % (50-75); Platelet Count 233 X10^3/uL (150-400); Red Blood Cell Count 4.66 X10^6/uL (4.0-5.2); Red Cell Distribution Width 13.7 % (11.6-14.8); White Blood Cell Count 8.7 X10^3/uL (4.5-11.0)
[2023-08-15 13:57] LABS: Appearance Urine UA SL CLOUDY; Bilirubin Urine UA NEGATIVE (NEGATIVE); Color Urine UA YELLOW; Glucose Urine UA NEGATIVE (Negative); Ketones Urine UA TRACE (NEGATIVE); Leukocyte Esterase Urine UA 1+ (NEGATIVE); Nitrite Urine UA NEGATIVE (Negative); Occult Blood Urine UA NEGATIVE (Negative); Protein Urine UA TRACE (Negative)
[2023-08-15 14:03] LABS: Creatinine Urine Random 93.7 mg/dL; RBC Urine None Seen (0-5/HPF); Urine Volume 10mL (spun)
[2023-08-15 14:04] LABS: Bacteria Urine None Seen; Culture Indicated Urine Specimen Cultured; Protein (Total) Urine Random < 5 mg/dL (0-12); Protein Creatinine Ratio Urine 0.05 GRAM/24H; Squamous Epithelial Cell Urine 1-5 /HPF (0-5/HPF); WBC Urine 5-10/HPF (0-5/HPF)
[2023-08-15 14:36] LABS: Alanine Aminotransferase 49 IU/L (<35); Albumin Globulin Ratio 1.3 (1.0-2.8); Alkaline Phosphatase 62 U/L (38-126); Aspartate Aminotransferase 33 IU/L (14-36); BUN Creatinine Ratio 24.4 (6-22); Bilirubin Total 0.5 mg/dL (0.2-1.3); Blood Urea Nitrogen 10 mg/dL (7-17); Calcium 9.7 mg/dL (8.4-10.2); Carbon Dioxide 20 mmol/L (22-32); Chloride 106 mmol/L (98-107); Estimated Glomerular Filt Rate > 60 mL/min (>60); Globulin 3.1 g/dL (1.7-4.1); Glucose 79 mg/dL (70-100); HEMOLYSIS < 15 (0-50); Potassium 4.1 mmol/L (3.4-5.1); Sodium 134 mmol/L (137-145); Total Protein 7.1 g/dL (6.3-8.2)
[2023-08-15 16:34] LABS: Hepatitis B Surface Antigen NEGATIVE s/c (NEGATIVE); Rubella Antibody IgG 6.1 IU/mL (>15)
[2023-08-15 16:49] LABS: HIV 1 & 2 Ab/Ag 4th Gen Combo NEGATIVE (NEGATIVE); Hep C Virus Ab w/Reflex Quant NEGATIVE s/c (NEGATIVE)
[2023-08-16 09:15] LABS: Varicella IgG Antibody <135 index (Immune >165)
[2023-08-16 09:36] LABS: RPR Screen Non Reactive (Non Reactive)
== END ==
PROVIDERS: Referring Provider Family Medicine; Visit Provider Family Medicine
DX: Z34.00 Encounter for supervision of normal first pregnancy, unspecified trimester (principal)
CPT/HCPCS: 36415; 80053; 80055; 81003; 81015; 82570; 84156; 86787; 86803; 86850; 86900; 86901; 87086; 87389

== ENCOUNTER 2023-08-31 10:35 | Emergency (ER) | payer OTHER, MEDICAID, SELFPAY ==
[2023-08-31 10:44] VITALS: BP 135/73; PULSE 88; RESP 18; TEMP 36.8; O2SAT 99; BMI 40.3
--- NOTE | 2023-08-31 10:58 | ED.GENADULT ---
HPI - General Adult General Chief complaint: Abdominal Pain Stated complaint: bleeding in stool, abd pain, 14wks Time Seen by Provider: 08/31/23 10:58 Source: patient Mode of arrival: Family Vehicle History of Present Illness HPI narrative: 22-year-old at 14 weeks with moderate amount of constipation recently very firm bowel movement with some tenderness this morning followed by bright red blood on the toilet paper when she is wiping. Talked to her OBGYN and was instructed to come in for further evaluation. She has not noticing any pelvic pain, contractions, vaginal bleeding or loss fluid. No dysuria or flank pain. Related Data Home Medications Medication Instructions Recorded Confirmed [id number] 400 mcg-om3 35 mg-dha 25 tab PO 08/11/23 08/15/23 mg-epa 5 mg-fish oil chewable tablet Allergies Allergy/AdvReac Type Severity Reaction Status Date / Time No Known Drug Allergies Allergy Verified 08/31/23 10:51 Review of Systems Review of Systems Narrative: Pertinent positive and negative findings as per HPI Patient History Medical History Acute cholecystitis Surgical History [place] teeth extracted History of ankle surgery History of hip surgery History of cholecystectomy (~04/2023) Family History Mother Migraines Bipolar disorder Smoker Father Bipolar disorder Cigar smoker Grandfather Diabetes mellitus Asthma Grandmother Blood clotting disorder Grandfather Heart disease Aunt Ovarian hypofunction Sister Mental health disorder Sister Epilepsy Social History marital status: number of children: 0 household members: spouse and family (s/o's parents) lives independently: Yes caregiver/support person: No housing: house pets and animals: Yes (cats & dog, family managing litter boxes) education level: high school occupational status: employed (fast food) current occupational exposures/hazards: No special priya needs: No travel history: over 6 months ago seatbelt use: always water heater temp set < 120 deg: Yes working smoke detector in home: Yes fire extinguisher in home: Yes carbon monox detector in home: Yes firearms in home: No do you feel safe at home: Yes Smoking Status: Never smoker second hand exposure: No (DHEERAJ vapes, but not around pt) alcohol intake: never substance use type: marijuana (agrees not to use while /) during the past year weight has: remained stable well-balanced diet: rarely or never daily servings fruits/ve-1 caffeine: Yes (counseled to avoid energy drinks in favor of coffee/tea within 200 mg limit) Type(s) of exercise: walking frequency: 1-2 times per week Smoking Status: Never smoker alcohol intake frequency: holidays/special occasions only Substance Use Type: does not use Exam Initial Vital Signs Initial Vital Signs: Vital Signs Temperature 98.3 F 08/31/23 10:44 Pulse Rate 88 08/31/23 10:44 Respiratory Rate 18 08/31/23 10:44 Blood Pressure 135/73 08/31/23 10:44 Pulse Oximetry 99 08/31/23 10:44 Oxygen Delivery Method Room Air 08/31/23 10:44 General: Healthy appearing, in no acute distress. Able to give a complete and coherent history. Well-nourished well-developed HEENT: Moist mucous membranes, normal sclera with reactive pupils, Respiratory: Full and symmetrical air movement Abdomen: Soft, nontender, no flank pain Rectal exam: Small nonbleeding internal hemorrhoid appreciated. No significant external hemorrhoids blood does clearly appear to be from the rectum rather than the vagina Skin: Warm and dry, no rashes Neurologic: Grossly neurologically intact with no obvious asymmetries or abnormalities Extremities: No trauma, well perfused Psych: Cooperative, appropriate insight and affect Bedside ultrasound confirms intrauterine , closed cervix, appropriate movement, heart rate in the 150s, no subchorionic hemorrhage appreciated Course Vital Signs Vital signs: Vital Signs - 8 hr 08/31/23 10:44 Temperature 98.3 F Pulse Rate 88 Respiratory Rate 18 Blood Pressure 135/73 Pulse Oximetry 99 Oxygen Delivery Method Room Air Discharge Plan Departure Patient Disposition: Home Clinical Impression: Bleeding internal hemorrhoids, 14 weeks gestation of Constipation Qualifiers: Constipation type: unspecified constipation type Qualified Code(s): K59.00 - Constipation, unspecified Instructions: DI for Hemorrhoids Activity Restrictions/Additional Instructions: Thank you for coming in today You do have a small internal hemorrhoid that was bleeding slightly after your hard bowel movement this morning. This is very common in . This is nothing I am particularly concerned about. The number one thing you can do to help prevent this is keep your stools soft as possible. I recommend MiraLax if you have not had a bowel movement for over 24 hours. If you are consistently noticing that daily bowel movements are so far that they are somewhat uncomfortable or you are having hemorrhoidal bleeding, daily MiraLax is also going to be helpful Your baby looks beautiful and there does not seem to be any complication with the . The baby's heart rate today was 150. If you find that you are getting worse or develop any new symptoms, please feel free to return to the emergency department for further evaluation. Prescriptions: No Action [id number] oil 400 mcg-35 mg -25 mg-5 mg tablet,chewable PO Referrals: Miscellaneous,Doctor, MD [Primary Care Provider] - Stand Alone Forms: Patient Portal/API
== END 2023-08-31 11:26 | disposition home or self-care (01) ==
PROVIDERS: Emergency Provider Emergency Medicine
DX: O22.42 Hemorrhoids in pregnancy, second trimester (principal); O26.892 Other specified pregnancy related conditions, second trimester; K59.00 Constipation, unspecified; Z3A.14 14 weeks gestation of pregnancy
CPT/HCPCS: 99281; 99282

== ENCOUNTER 2023-09-22 12:55 | Emergency (ER) | payer OTHER, MEDICAID, SELFPAY ==
[2023-09-22] VITALS (11 sets, daily range): BP systolic 132–170; BP diastolic 72–90; PULSE 78–110; RESP 18–24; TEMP 36.6; O2SAT 96–100; BMI 39.6
--- NOTE | 2023-09-22 13:15 | DI.RAD.S_ITS ---
PROCEDURE: XR CHEST 1V INDICATIONS: chest pain TECHNIQUE: One view of the chest was acquired. COMPARISON: None. FINDINGS: Surgical changes and devices: None. Lungs and pleura: Lungs are clear. No pleural effusions or pneumothorax. Mediastinum: Mediastinal contours appear normal. Heart size is normal. Bones and chest wall: No suspicious bony lesions. Overlying soft tissues appear unremarkable. IMPRESSION: No acute pulmonary process. Dictated by: Tess Dudley M.D. on 09/22/2023 at 13:59 Approved by: Tess Dudley M.D. on 09/22/2023 at 14:08
[2023-09-22 13:29] LABS: Add Manual Diff / Slide Review NO; Basophils Absolute Auto 0 /uL (0-100); Basophils Percent Auto 0.4 % (0-2); Eosinophils Absolute Auto 100 /uL (0-450); Eosinophils Percent Auto 0.5 % (2-4); Hematocrit 38.2 % (36-46); Hemoglobin 13.1 g/dL (12.0-16.0); Lymphocytes Absolute Auto 1700 /uL (1100-4500); Lymphocytes Percent Auto 15.4 % (25-40); Mean Corpuscular HGB Conc 34.4 % (30-36); Mean Corpuscular Hemoglobin 29.6 PG (26-34); Mean Corpuscular Volume 86.1 fL (80-100); Monocytes Absolute Auto 500 /uL (0-900); Monocytes Percent Auto 4.2 % (3-14); Neutrophils Absolute Auto 8900 /uL (1500-7000); Neutrophils Percent Auto 79.5 % (50-75); Platelet Count 230 X10^3/uL (150-400); Red Blood Cell Count 4.44 X10^6/uL (4.0-5.2); Red Cell Distribution Width 13.9 % (11.6-14.8); White Blood Cell Count 11.2 X10^3/uL (4.5-11.0)
--- NOTE | 2023-09-22 13:29 | ED_ITS ---
HPI - SOB/Dyspnea General Chief Complaint: Syncope Stated Complaint: syncope, 17wks , diff breathing Time Seen by Provider: 09/22/23 13:07 Source: patient Mode of arrival: Ambulatory Limitations: no limitations History of Present Illness HPI Narrative: Patient is a 22-year-old female currently 17 weeks presenting today with ongoing chest pain and near syncopal episode. She reports that she feels like she is short of breath she is having trouble taking deep breaths. No fever chills or coughs. Today while at work she felt like she had severe like neck or throat pain she said the pain was so bad she nearly blacked out she did not fall or hit her head. She has absolutely no abdominal pain vaginal bleeding. She does have some mild back pain. No palpitations or ongoing chest pain. Related Data Home Medications Medication Instructions Recorded Confirmed [id number] 400 mcg-om3 35 mg-dha 25 tab PO 08/11/23 09/15/23 mg-epa 5 mg-fish oil chewable tablet Previous Rx's Medication Instructions Recorded albuterol sulfate 90 mcg/actuation 2 puff inhalation Q4-6H PRN 09/22/23 aerosol inhaler shortness of breath or wheezing #8.5 grams Allergies Allergy/AdvReac Type Severity Reaction Status Date / Time No Known Drug Allergies Allergy Verified 09/15/23 14:08 Patient History Medical History Acute cholecystitis Surgical History [place] teeth extracted History of ankle surgery History of hip surgery History of cholecystectomy (~04/2023) Family History Mother Migraines Bipolar disorder Smoker Father Bipolar disorder Cigar smoker Grandfather Diabetes mellitus Asthma Grandmother Blood clotting disorder Grandfather Heart disease Aunt Ovarian hypofunction Sister Mental health disorder Sister Epilepsy Social History marital status: number of children: 0 household members: spouse and family (s/o's parents) lives independently: Yes caregiver/support person: No housing: house pets and animals: Yes (cats & dog, family managing litter boxes) education level: high school occupational status: employed (fast food) current occupational exposures/hazards: No special priya needs: No travel history: over 6 months ago seatbelt use: always water heater temp set < 120 deg: Yes working smoke detector in home: Yes fire extinguisher in home: Yes carbon monox detector in home: Yes firearms in home: No do you feel safe at home: Yes Smoking Status: Never smoker second hand exposure: No (DHEERAJ vapes, but not around pt) alcohol intake: never substance use type: marijuana (agrees not to use while /) during the past year weight has: remained stable well-balanced diet: rarely or never daily servings fruits/ve-1 caffeine: Yes (counseled to avoid energy drinks in favor of coffee/tea within 200 mg limit) Type(s) of exercise: walking frequency: 1-2 times per week Smoking Status: Never smoker alcohol intake frequency: holidays/special occasions only Substance Use Type: does not use Exam Initial Vital Signs Initial Vital Signs: Vital Signs Temperature 97.8 F 09/22/23 13:08 Pulse Rate 110 H 09/22/23 13:08 Respiratory Rate 24 09/22/23 13:08 Blood Pressure 132/90 09/22/23 13:08 Pulse Oximetry 98 09/22/23 13:08 Oxygen Delivery Method Room Air 09/22/23 13:08 GENERAL: [Well-appearing, well-nourished] and in [no acute] distress. HEENT: Head atraumatic,EOMI, pupils reactive, face symmetric, [moist] mucous membranes [EARS:] [Tympanic membranes visualized, no erythema or bulging, no hemotympanum] [PHARYNX:] [No erythema, no tonsillar exudate, no cervical lymphadenopathy] CARDIOVASCULAR: Regular rate and rhythm without murmurs, rubs or gallops. RESPIRATORY: Breath sounds equal bilaterally, no wheezes rales or rhonchi. ABDOMEN: Soft, nontender. Normoactive bowel sounds all 4 quadrants. No guarding or rebound. [RECTAL:] [Hemoccult-positive, no hemorrhoids, nontender] : No CVA tenderness EXTREMITIES: Normal range of motion, no clubbing or edema. Neurovascularly intact NEUROLOGICAL: Alert and oriented x4.Normal gait and speech. Cranial nerves II through XII grossly intact. [Good webkij-ep-pztk, good ebzv-ae-ldcl, strength equal bilaterally, no dysarthria or aphasia, sensation in tact to soft touch bilaterally, no visual changes, no facial droop] SKIN: Warm, dry, no laceration, no petechiae, no rashes or lesions. Course Orders Ordered: ED Orders 09/22/23 13:15 XR chest 1V Stat EKG-12 Lead Stat 09/22/23 13:18 Complete Blood Count AUTO DIFF Stat Comprehensive Metabolic Panel Stat Lipase Stat Troponin & CK Cardiac Panel Stat 09/22/23 13:20 Covid-19 + FLU A/B + RSV - PCR Stat Discontinued Medications Acetaminophen (Acetaminophen 325 Mg Tablet) 650 mg PO NOW ONE Stop: 09/22/23 15:05 Last Admin: 09/22/23 15:08 Dose: 650 mg Documented By: PATSY Albuterol (Albuterol 2.5 Mg/3 Ml Neb (Adult)) 2.5 mg INH NOW ONE Stop: 09/22/23 13:30 Last Admin: 09/22/23 15:59 Dose: 2.5 mg Documented By: HAIM Sodium Chloride (Normal Saline 0.9%) 1,000 mls @ 1,000 mls/hr IV CONT CHELSEA Last Infusion: 09/22/23 15:21 Dose: Infused Documented By: Admin: 09/22/23 13:38 Dose: 1,000 mls/hr Documented By: PATSY(2) Vital Signs Vital signs: Vital Signs - 8 hr 09/22/23 13:08 09/22/23 13:32 09/22/23 14:00 Temperature 97.8 F Pulse Rate 110 H 93 H 88 Respiratory Rate 24 19 19 Blood Pressure 132/90 132/90 Pulse Oximetry 98 96 100 Oxygen Delivery Method Room Air 09/22/23 14:21 09/22/23 14:21 09/22/23 14:30 Temperature Pulse Rate 94 H Respiratory Rate 22 Blood Pressure 142/72 H 141/75 H Pulse Oximetry 98 Oxygen Delivery Method 09/22/23 14:30 09/22/23 15:00 09/22/23 15:00 Temperature Pulse Rate 87 88 Respiratory Rate 23 20 Blood Pressure 154/81 H Pulse Oximetry 97 99 Oxygen Delivery Method 09/22/23 15:30 09/22/23 15:30 09/22/23 15:59 Temperature Pulse Rate 97 H 84 Respiratory Rate 23 18 Blood Pressure 170/86 H Pulse Oximetry 98 98 Oxygen Delivery Method Room Air 09/22/23 16:00 09/22/23 16:00 09/22/23 16:30 Temperature Pulse Rate 89 Respiratory Rate 23 Blood Pressure 160/74 H 138/75 Pulse Oximetry 99 Oxygen Delivery Method 09/22/23 16:30 09/22/23 17:08 Temperature Pulse Rate 98 H 78 Respiratory Rate 21 18 Blood Pressure Pulse Oximetry 98 98 Oxygen Delivery Method Room Air MDM - SOB/Dyspnea Lab Data 09/22/23 13:18 09/22/23 13:18 Labs: Lab Results 09/22/23 09/22/23 Range/Units 13:18 13:20 WBC 11.2 H (4.5-11.0) X10^3/uL RBC 4.44 (4.0-5.2) X10^6/uL Hgb 13.1 (12.0-16.0) g/dL Hct 38.2 (36-46) % MCV 86.1 (80-100) fL MCH 29.6 (26-34) PG MCHC 34.4 (30-36) % RDW 13.9 (11.6-14.8) % Plt Count 230 (150-400) X10^3/uL Neut % (Auto) 79.5 H (50-75) % Lymph % (Auto) 15.4 L (25-40) % [place] % (Auto) 4.2 (3-14) % Eos % (Auto) 0.5 L (2-4) % Baso % (Auto) 0.4 (0-2) % Neut # (Auto) 8900 H (4671-2846) /uL Lymph # (Auto) 1700 (1165-1054) /uL [place] # (Auto) 500 (0-900) /uL Eos # (Auto) 100 (0-450) /uL Baso # (Auto) 0 (0-100) /uL Sodium 135 L (137-145) mmol/L Potassium 3.8 (3.4-5.1) mmol/L Chloride 107 (98-107) mmol/L Carbon Dioxide 22 (22-32) mmol/L BUN 12 (7-17) mg/dL Creatinine 0.40 L (0.52-1.04) mg/dL Estimated GFR > 60 (>60) mL/min BUN/Creatinine Ratio 30.0 H (6-22) Glucose 95 (70-100) mg/dL Calcium 9.5 (8.4-10.2) mg/dL Total Bilirubin 0.3 (0.2-1.3) mg/dL AST 32 (14-36) IU/L ALT 38 H (<35) IU/L Alkaline Phosphatase 72 (38-126) U/L Total Creatine Kinase 91 (30-135) U/L Troponin I < 0.012 (0.01-0.034) ng/mL Total Protein 7.4 (6.3-8.2) g/dL Albumin 4.3 (3.5-5.0) g/dL Globulin 3.1 (1.7-4.1) g/dL Albumin/Globulin Ratio 1.4 (1.0-2.8) Lipase 60 (23-300) U/L SARS-CoV-2 (PCR) Negative (Negative) Influenza A (RT-PCR) Flu a negative (NEGATIVE) Influenza B (RT-PCR) Flu b negative (NEGATIVE) RSV (PCR) Negative (Negative) Urine Dip Bedside Urine Glucose Negative Bedside Urine Bilirubin - Negative Bedside Urine Ketone - Negative Urine Specific [place] 1.030 Bedside Urine Occult Blood - Negative Bedside Urine pH 6.0 Bedside Urine Protein - Negative Bedside Urine Urobilinogen - Negative Bedside Urine Nitrite - Negative Bedside Urine Leukocytes - Negative Esterase Imaging Data Chest x-ray: Radiologist's Impression: PROCEDURE: XR CHEST 1V INDICATIONS: chest pain TECHNIQUE: One view of the chest was acquired. COMPARISON: None. FINDINGS: Surgical changes and devices: None. Lungs and pleura: Lungs are clear. No pleural effusions or pneumothorax. Mediastinum: Mediastinal contours appear normal. Heart size is normal. Bones and chest wall: No suspicious bony lesions. Overlying soft tissues appear unremarkable. IMPRESSION: No acute pulmonary process. Dictated by: Tess Dudley M.D. on 09/22/2023 at 13:59 ECG Data Interpretation: Normal sinus rhythm rate 92 NV interval 138 QRS [address] changes MDM Narrative Medical decision making narrative: Patient 22-year-old female presenting today with increasing shortness of breath. 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 Blood work has been reviewed WBC 11.2, hemoglobin 13.1, hematocrit 38.2, platelets 230, sodium 135, potassium 3.8, chloride 107, carbon dioxide 22, BUN 12, creatinine 0.40, glucose 95, bilirubin 0.3, AST 32, ALT 38 troponin negative Chest x-ray has been reviewed no acute cardiopulmonary process EKG has been reviewed Patient presents today with some shortness of breath and intense throat pain which has now resolved. She was now having some bilateral lower abdominal pain. heart tones do show a heart rate between 156 and 172. Bedside ultrasound done by myself confirms heart rate an IUP. Discharge Plan Departure Patient Disposition: Home Clinical Impression: Shortness of breath Instructions: Common Discomforts and Bodily Changes During , DI for Shortness of Breath Activity Restrictions/Additional Instructions: *You have been diagnosed with short of breath and abdominal pain *What to do: At this time blood work and x-ray overall reassuring no need for antibiotics. Make sure that you stay hydrated *Continue to take medications as directed Tylenol 1000 mg every 6 hours for [id number] pain Albuterol inhaler 1-2 puffs every 4 hours if needed for shortness of breath *Follow up with your primary care provider in 2-3 days or call [phone] *Return to ER if you should have increasing pain shortness of or any new, worsening or concerning symptoms Prescriptions: New albuterol sulfate 90 mcg/actuation HFA aerosol inhaler 2 puff INHALATION Q4-6H PRN (Reason: shortness of breath or wheezing) Qty: 8.5 0RF No Action [id number]-wher oil 400 mcg-35 mg -25 mg-5 mg tablet,chewable PO Referrals: Miscellaneous,Doctor, MD [Primary Care Provider] - Stand Alone Forms: Patient Portal/API
[2023-09-22] MEDS: SODIUM CHLORIDE 0.9% 1,000 ML 1000 ML IV (13:38)
[2023-09-22 13:54] LABS: Blood Urea Nitrogen 12 mg/dL (7-17); Carbon Dioxide 22 mmol/L (22-32); Chloride 107 mmol/L (98-107); Estimated Glomerular Filt Rate > 60 mL/min (>60); HEMOLYSIS < 15 (0-50); Potassium 3.8 mmol/L (3.4-5.1); Sodium 135 mmol/L (137-145)
[2023-09-22 13:55] LABS: Alanine Aminotransferase 38 IU/L (<35); Albumin 4.3 g/dL (3.5-5.0); Albumin Globulin Ratio 1.4 (1.0-2.8); Alkaline Phosphatase 72 U/L (38-126); Aspartate Aminotransferase 32 IU/L (14-36); Bilirubin Total 0.3 mg/dL (0.2-1.3); Calcium 9.5 mg/dL (8.4-10.2); Globulin 3.1 g/dL (1.7-4.1); Glucose 95 mg/dL (70-100); Total Protein 7.4 g/dL (6.3-8.2)
[2023-09-22 13:56] LABS: Creatine Kinase 91 U/L (30-135); Lipase 60 U/L (23-300); Troponin I < 0.012 ng/mL (0.01-0.034)
[2023-09-22 14:04] LABS: Influenza A - CEPHEID Flu A NEGATIVE (NEGATIVE); Influenza B - CEPHEID Flu B NEGATIVE (NEGATIVE); Respiratory Syncytial Virus Negative (Negative)
[2023-09-22 14:05] LABS: COVID-19 CEPHEID 4-PLEX PCR Negative (Negative)
[2023-09-22] MEDS: ACETAMINOPHEN 325 MG TABLET 650 MG PO (15:08)
--- NOTE | 2023-09-22 15:25 | PC.NURSE ---
NS 0.9% stopped after first 1000ml bolus per provider verbal order.
[2023-09-22] MEDS: ALBUTEROL 2.5 MG/3 ML NEB (ADULT) INH (15:59)
--- NOTE | 2023-09-22 16:31 | PC.NURSE ---
Physician at bedside w/ US for FHT.
== END 2023-09-22 17:11 | disposition home or self-care (01) ==
PROVIDERS: Emergency Provider Emergency Medicine
DX: R06.02 Shortness of breath (principal); R07.9 Chest pain, unspecified; Z3A.17 17 weeks gestation of pregnancy; Z20.822 Contact with and (suspected) exposure to COVID-19
CPT/HCPCS: 0241U; 36415; 71045; 80053; 81003; 82550; 83690; 84484; 85025; 93005; 93010; 94150; 94640; 96360; 96361; 99284; J7613

== ENCOUNTER 2023-09-24 16:07 | Emergency (ER) | payer OTHER, MEDICAID, SELFPAY ==
[2023-09-24 16:12] VITALS: BP 144/72; PULSE 101; RESP 16; TEMP 36.6; O2SAT 98; BMI 40.1
--- NOTE | 2023-09-24 16:29 | PC.NURSE ---
Pressure behind right ear x 2-3 years. Pain and popping over the past 1-2 days. Pt states she has taken Tylenol at home w/ no relief. Pt states she is so she has been limited to what she can take OTC. Pt states she does not think she has had an vision changes. Pt denies n/v, cp, back pain. Pt states she has no known hx of hbp. Pt reports chronic sensitivity to light.
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
[2023-09-24 16:56] VITALS: RESP 18
--- NOTE | 2023-09-24 16:59 | PC.NURSE ---
No lower extremity swelling noted. No reported seizures or seizure like activity.
== END 2023-09-24 17:00 | disposition home or self-care (01) ==
PROVIDERS: Emergency Provider Physician Assistant Medical
DX: R51.9 Headache, unspecified (principal); Z3A.17 17 weeks gestation of pregnancy
CPT/HCPCS: 99281

== ENCOUNTER → 2023-10-06 13:57 | Outpatient (CLI) | payer OTHER, MEDICAID, SELFPAY ==
[2023-10-05 10:40] VITALS: BMI 38.6
--- NOTE | 2023-10-06 13:58 | DI.US.S_ITS ---
PROCEDURE: US OB >= 14 WEEKS FETUS INDICATIONS: Dating OUTSIDE/PRIOR DATING DATA: Last menstrual period (LMP): May 20, 2023. LMP-based estimated date of delivery (IRON): February 24, 2024. First dating scan (date and location): July 18, 2023. Estimated date of delivery (IRON) from first dating scan: February 24, 2024. TECHNIQUE: Real-time scanning was performed of the fetus, with image documentation and biometric measurements. Endovaginal scanning: Not performed COMPARISON: None. FINDINGS: General: A single living intrauterine gestation is present. Presentation: Variable. Placenta: Placental position is posterior , without previa. Amniotic fluid index: 12.7 cm, normal range is 5-24 cm. Single deepest vertical pocket is 3.9 cm. heart rate: 144 beats per minute. Maternal cervical canal: 4.6 cm long. Normal lower limit is 2.5 cm. biometrics: Biparietal diameter: 4.9 cm, 20 weeks and 6 days Head circumference: 18.3 cm, 20 weeks and 5 days Abdominal circumference: 14.8 cm, 20 weeks and 0 days Femur length: 3.2 cm, 20 weeks and 0 days Clinically estimated gestational age: 19 weeks and 6 days Composite gestational age from present scan: 20 weeks and 3 days Estimated weight and percentile: 332 g which correlates with the 60th percentile Anatomic survey: Neuro: Ventricles are non-dilated at less than 10 mm. Cisterna magna is normal at 3-11 mm. Cerebellum is normal in size and morphology. Nuchal skin fold: Normal at less than 6 mm between 14-21 weeks gestational age. Face: Nose and lips, facial profile were not well visualized secondary to positioning. Spine: No evidence for spina bifida. Heart: 4-chambered heart and the ventricular outflow tracts were not well visualized secondary to positioning. Diaphragm: Diaphragm is intact. Stomach: Left-sided stomach is present. Kidneys: No hydronephrosis. Normal is less than 5 mm in 2nd trimester, less than 7 mm in 3rd trimester. Cord: 3-vessel cord has orthotopic insertion. Bladder: Normal in size. Extremities: All 4 extremities identified. IMPRESSION: Single living intrauterine gestation with estimated sonographic gestational age of approximately 20 weeks and 3 days versus approximately 19 weeks and 6 days by last menstrual period. Normal interval growth has occurred. Estimated weight of approximately 332 g which correlates with the 60th percentile for gestational age. The nose and lips, facial profile, four-chamber heart, and ventricular outflow tracts were not well visualized secondary to positioning. Follow-up recommended. Otherwise, unremarkable second-trimester anatomy screening survey. We strive to produce accurate, complete, and clear reports of imaging services. To assist us in improving patient care, this report was composed using standard report templates and voice recognition software. Therefore, it may contain abnormal punctuation, insertions and/or omissions. Occasional wrong-word or sound-alike substitutions may occur. Though we review the report and make efforts to correct it, we do recommend that the report be read carefully in proper context to recognize any text inaccuracies. Dictated by: Rich Valero M.D. on 10/06/2023 at 20:27 Approved by: Rich Valero M.D. on 10/06/2023 at 20:31
== END ==
PROVIDERS: Referring Provider Family Medicine; Visit Provider Family Medicine
DX: Z34.02 Encounter for supervision of normal first pregnancy, second trimester (principal); Z3A.20 20 weeks gestation of pregnancy
CPT/HCPCS: 76811

== ENCOUNTER → 2023-10-31 15:15 | Outpatient (CLI) | payer OTHER, MEDICAID, SELFPAY ==
[2023-10-05 10:40] VITALS: BMI 38.6
--- NOTE | 2023-10-31 15:16 | DI.US.S_ITS ---
PROCEDURE: US OB FOLLOW UP INDICATIONS: f/up missing anatomy from anatomy US (multiple )areas OUTSIDE/PRIOR DATING DATA: Last menstrual period (LMP): May 20, 2023. LMP-based estimated date of delivery (IRON): February 24, 2024. First dating scan (date and location): July 18, 2023. Estimated date of delivery (IRON) from first dating scan: February 24, 2024. The calculations are made using the ultrasound IRON of February 24, 2024. TECHNIQUE: Real-time scanning was performed of the fetus, with image documentation and biometric measurements. Endovaginal scanning: Not performed COMPARISON: None. FINDINGS: General: A single living intrauterine gestation is present. Presentation: Breech. Placenta: Placental position is posterior , without previa. Amniotic fluid index: 17.1 cm, normal range is 5-24 cm. Single deepest vertical pocket is 4.7 cm. heart rate: 140 beats per minute. Maternal cervical canal: 4.2 cm long. Normal lower limit is 2.5 cm. Anatomic survey: Neuro: Ventricles are normal at less than 10 mm. Cisterna magna is normal at 3-11 Face: Nose and lips, facial profile are normal. Heart: 4-chambered heart is present, with normal ventricular outflow tracts. IMPRESSION: Single live intrauterine gestation in breech position. The profile, nose/lips, four-chamber heart and ventricular outflow tracks have a normal sonographic appearance. We strive to produce accurate, complete, and clear reports of imaging services. To assist us in improving patient care, this report was composed using standard report templates and voice recognition software. Therefore, it may contain abnormal punctuation, insertions and/or omissions. Occasional wrong-word or sound-alike substitutions may occur. Though we review the report and make efforts to correct it, we do recommend that the report be read carefully in proper context to recognize any text inaccuracies. Dictated by: Aida Macedo M.D. on 10/31/2023 at 16:50 Approved by: Aida Macedo M.D. on 10/31/2023 at 16:54
== END ==
PROVIDERS: Referring Provider Family Medicine; Visit Provider Family Medicine
DX: Z34.00 Encounter for supervision of normal first pregnancy, unspecified trimester (principal)
CPT/HCPCS: 76816

== ENCOUNTER → 2023-11-17 14:55 | Outpatient (CLI) | payer OTHER, MEDICAID, SELFPAY ==
[2023-10-05 10:40] VITALS: BMI 38.6
[2023-11-17 17:11] LABS: Add Manual Diff / Slide Review NO; Basophils Absolute Auto 0 /uL (0-100); Basophils Percent Auto 0.2 % (0-2); Eosinophils Absolute Auto 0 /uL (0-450); Eosinophils Percent Auto 0.5 % (2-4); Hematocrit 35.2 % (36-46); Hemoglobin 12.1 g/dL (12.0-16.0); Lymphocytes Absolute Auto 1500 /uL (1100-4500); Lymphocytes Percent Auto 15.5 % (25-40); Mean Corpuscular HGB Conc 34.5 % (30-36); Mean Corpuscular Hemoglobin 30.3 PG (26-34); Mean Corpuscular Volume 88.1 fL (80-100); Monocytes Absolute Auto 500 /uL (0-900); Monocytes Percent Auto 4.7 % (3-14); Neutrophils Absolute Auto 7600 /uL (1500-7000); Neutrophils Percent Auto 79.1 % (50-75); Platelet Count 273 X10^3/uL (150-400); Red Blood Cell Count 3.99 X10^6/uL (4.0-5.2); Red Cell Distribution Width 14.1 % (11.6-14.8); White Blood Cell Count 9.6 X10^3/uL (4.5-11.0)
[2023-11-17 17:31] LABS: GTT (PREG) 1 Hour PP 50gm Dose 92 mg/dL (76-139)
== END ==
PROVIDERS: PCP Family Medicine; Referring Provider Family Medicine; Visit Provider Family Medicine
DX: Z34.00 Encounter for supervision of normal first pregnancy, unspecified trimester (principal)
CPT/HCPCS: 36415; 82950; 85025

== ENCOUNTER 2023-11-26 13:52 | Outpatient (CLI) | payer OTHER, MEDICAID, SELFPAY ==
[2023-10-05 10:40] VITALS: BMI 38.6
== END 2023-11-26 14:30 | disposition home or self-care (01) ==
LOC: LABOR 14:06 → OB 11-28 10:14
PROVIDERS: PCP Family Medicine; Referring Provider Family Medicine; Visit Provider Family Medicine
DX: O26.892 Other specified pregnancy related conditions, second trimester (principal); R51.9 Headache, unspecified; H53.8 Other visual disturbances; Z3A.27 27 weeks gestation of pregnancy
CPT/HCPCS: 59025; G0378; G0379

== ENCOUNTER 2023-12-28 14:38 | Observation (INO) | payer OTHER, MEDICAID, SELFPAY ==
[2023-10-05 10:40] VITALS: BMI 38.6
[2023-12-28] MEDS: PROMETHAZINE 25 MG TABLET PO (16:27)
[2023-12-28] MEDS: BUTALB/APAP/CAFFEINE 50/325/40 TABLET 1 EACH PO (16:27)
[2023-12-28 16:35] LABS: Creatinine Urine Random 149.11 mg/dL
[2023-12-28 16:36] LABS: Protein (Total) Urine Random < 5 mg/dL (0-12); Protein Creatinine Ratio Urine 0.03 GRAM/24H
[2023-12-28 16:36] LABS: Add Manual Diff / Slide Review NO; Basophils Absolute Auto 0 /uL (0-100); Basophils Percent Auto 0.3 % (0-2); Eosinophils Absolute Auto 0 /uL (0-450); Eosinophils Percent Auto 0.4 % (2-4); Hematocrit 34.6 % (36-46); Hemoglobin 11.8 g/dL (12.0-16.0); Lymphocytes Absolute Auto 1600 /uL (1100-4500); Lymphocytes Percent Auto 14.9 % (25-40); Mean Corpuscular HGB Conc 34.1 % (30-36); Mean Corpuscular Hemoglobin 30.7 PG (26-34); Monocytes Absolute Auto 600 /uL (0-900); Monocytes Percent Auto 5.6 % (3-14); Neutrophils Absolute Auto 8300 /uL (1500-7000); Neutrophils Percent Auto 78.8 % (50-75); Platelet Count 226 X10^3/uL (150-400); Red Blood Cell Count 3.84 X10^6/uL (4.0-5.2); Red Cell Distribution Width 13.4 % (11.6-14.8); White Blood Cell Count 10.5 X10^3/uL (4.5-11.0)
--- NOTE | 2023-12-28 17:15 | PM.OBTRLD ---
Visit Information Visit Information Date of evaluation: 12/28/23 Primary OB Provider: Chelsea Ramsay Reason for Evaluation: Yes other Comments/Additional reasons for admission: 23 yo G1 presenting at 31w5d presenting with BAINS, back pain, nausea. Sx have been persistent for some time. Tylenol has not improved BAINS. She does have chronic BAINS and thse do feel like normal BAINS. she is followed by neurology who noted that they were unable to make recommendations for next steps while pregenant. [facility] Medical History Acute cholecystitis Surgical History [place] teeth extracted History of ankle surgery History of hip surgery History of cholecystectomy (~04/2023) Family History Mother Migraines Bipolar disorder Smoker Father Bipolar disorder Cigar smoker Grandfather Diabetes mellitus Asthma Grandmother Blood clotting disorder Grandfather Heart disease Aunt Ovarian hypofunction Sister Mental health disorder Sister Epilepsy Social History marital status: number of children: 0 household members: spouse and family lives independently: Yes caregiver/support person: No housing: house pets and animals: Yes (cats & dog, family managing litter boxes) education level: high school occupational status: employed current occupational exposures/hazards: No special priya needs: No travel history: over 6 months ago seatbelt use: always water heater temp set < 120 deg: Yes working smoke detector in home: Yes fire extinguisher in home: Yes carbon monox detector in home: Yes firearms in home: No do you feel safe at home: Yes Smoking Status: Never smoker second hand exposure: No (DHEERAJ vapes, but not around pt) alcohol intake: never substance use type: marijuana during the past year weight has: remained stable well-balanced diet: rarely or never daily servings fruits/ve-1 caffeine: Yes (counseled to avoid energy drinks in favor of coffee/tea within 200 mg limit) Type(s) of exercise: walking frequency: 1-2 times per week Review of Systems Review of Systems Narrative: + BAINS + Nausea + floaters in vision + back pain Exam Narrative Exam Narrative: GEN: Healthy appearing, well-developed, NAD. PSYCH: Good Judgment. AOx3. Normal memory, mood, and affect HEENT: -Head: NC/AT -Eyes: No discharge or redness CV: warm and well perfused ABD: non-tender, gravid LUNGS: breathing comfortably on RA SKIN: Warm, well perfused. No skin rashes or abnormal lesions MSK: Normal gait. No deformities NEURO: Ambulating with no limitations. No focal deficits Objective Labs 12/28/23 16:25 12/28/23 16:25 Labs: Laboratory Results - last 24 hr 12/28/23 12/28/23 16:00 16:25 WBC 10.5 RBC 3.84 L Hgb 11.8 L Hct 34.6 L MCV 90.0 MCH 30.7 MCHC 34.1 RDW 13.4 Plt Count 226 Neut % (Auto) 78.8 H Lymph % (Auto) 14.9 L Whiteside % (Auto) 5.6 Eos % (Auto) 0.4 L Baso % (Auto) 0.3 Neut # (Auto) 8300 H Lymph # (Auto) 1600 Whiteside # (Auto) 600 Eos # (Auto) 0 Baso # (Auto) 0 U Random Total Protein < 5 Urine Creatinine 149.11 Protein/Creatinin Ratio 0.03 Evaluation Evaluation Baseline heart rate: 140 Variability: Moderate (11-25) monitor accelerations: Present Monitor Decelerations: Absent Contraction Frequency (minutes): 0 Category of Tracing: Reactive Status: Category l Diagnosis, Plan/Disposition Plan/Disposition Plan: 23 yo G1 presenting at 31w5d presenting with BAINS, back pain, nausea. She was given Fioricet for the BAINS and phenergan for nausea. she did have some improvement in sx. Pre-E labs were collected and showed nml plts, nml Cr, nml LFTs aside from a mildly elevated alk phos which appears typical for , nml urine PC (0.03). NST reactive. As pt does have chronic BAINS that are ongoing through life not just in we discussed that it is unlikely that we will be able to completely tx BAINS but the goal is to make them toelrable. labs were reassure, BP nml and BAINS did improve with meds, pt was discharged with compazine for contineud BAINS management. She is going to PT to work through muscle tightness related to underlying CP. She is also taking PRN flexeril for muscle tightness. REturn precautions discussed OB Disposition: home
[2023-12-28 17:29] LABS: Alanine Aminotransferase 23 IU/L (<35); Albumin 3.2 g/dL (3.5-5.0); Albumin Globulin Ratio 0.9 (1.0-2.8); Alkaline Phosphatase 173 U/L (38-126); Aspartate Aminotransferase 24 IU/L (14-36); BUN Creatinine Ratio 21.6 (6-22); Bilirubin Total 0.4 mg/dL (0.2-1.3); Blood Urea Nitrogen 8 mg/dL (7-17); Calcium 8.8 mg/dL (8.4-10.2); Carbon Dioxide 20 mmol/L (22-32); Chloride 108 mmol/L (98-107); Estimated Glomerular Filt Rate > 60 mL/min (>60); Globulin 3.4 g/dL (1.7-4.1); Glucose 95 mg/dL (70-100); HEMOLYSIS < 15 (0-50); Potassium 3.6 mmol/L (3.4-5.1); Sodium 132 mmol/L (137-145); Total Protein 6.6 g/dL (6.3-8.2)
== END 2023-12-28 17:40 | disposition home or self-care (01) ==
LOC: ED 15:04 → LABOR 15:11
PROVIDERS: Admitting Provider Family Medicine; PCP Family Medicine; Visit Provider Family Medicine
DX: O26.893 Other specified pregnancy related conditions, third trimester (principal); R51.9 Headache, unspecified; M54.9 Dorsalgia, unspecified; R11.0 Nausea; Z3A.31 31 weeks gestation of pregnancy
CPT/HCPCS: 59025; 59050; 80053; 82570; 84156; 85025; G0378

== ENCOUNTER 2024-01-16 15:00 | Observation (INO) | payer OTHER, MEDICAID, SELFPAY ==
[2023-10-05 10:40] VITALS: BMI 38.6
[2024-01-16 15:32] LABS: Bacteria Urine Many (>30); Culture Indicated Urine Cult Not Indicated; Mucus Urine 1+ (Negative); RBC Urine 0-1/HPF (0-5/HPF); Squamous Epithelial Cell Urine 10-30 /HPF (0-5/HPF); Urine Volume 10mL (spun); WBC Urine 1-5/HPF (0-5/HPF)
--- NOTE | 2024-01-16 17:35 | PM.OBTRLD ---
Visit Information Visit Information Date of evaluation: 01/16/24 Primary OB Provider: Chelsea Ramsay On-call OB Provider: Chelsea Ramsay Comments/Additional reasons for admission: 23 yo F presenting at 34w3d with nausea and low back pain. SHe has struggled with significant MSK pain during related to CP but has been otherwise uncomplicated. She has had nausea and 2 episodes of vomiting earlier today but this has resolved. No fevers. She has had back pain throughout . She took a flexeril and tylenol and didnt feel significant improvement. [facility] Medical History Acute cholecystitis Surgical History [place] teeth extracted History of ankle surgery History of hip surgery History of cholecystectomy (~04/2023) Family History Mother Migraines Bipolar disorder Smoker Father Bipolar disorder Cigar smoker Grandfather Diabetes mellitus Asthma Grandmother Blood clotting disorder Grandfather Heart disease Aunt Ovarian hypofunction Sister Mental health disorder Sister Epilepsy Social History marital status: number of children: 0 household members: spouse and family lives independently: Yes caregiver/support person: No housing: house pets and animals: Yes (cats & dog, family managing litter boxes) education level: high school occupational status: employed current occupational exposures/hazards: No special priya needs: No travel history: over 6 months ago seatbelt use: always water heater temp set < 120 deg: Yes working smoke detector in home: Yes fire extinguisher in home: Yes carbon monox detector in home: Yes firearms in home: No do you feel safe at home: Yes Smoking Status: Never smoker second hand exposure: No (DHEERAJ vapes, but not around pt) alcohol intake: never substance use type: marijuana during the past year weight has: remained stable well-balanced diet: rarely or never daily servings fruits/ve-1 caffeine: Yes (counseled to avoid energy drinks in favor of coffee/tea within 200 mg limit) Type(s) of exercise: walking frequency: 1-2 times per week Review of Systems Review of Systems Narrative: - fevers + low back pain + nausea + vomiting Exam Narrative Exam Narrative: Gen: tired but NAD pulm: breathing comfortably on RA CV: warm and well perfused Abd: gravid, non-tender Objective Labs Labs: Laboratory Results - last 24 hr 01/16/24 15:15 Urine RBC 0-1/hpf Urine WBC 1-5/hpf Ur Squamous Epith Cells 10-30 /hpf H D Urine Bacteria Many (>30) H Urine Mucus 1+ H Ur Culture Indicated? Cult not indicated Vol Urine Centrifuged 10ml (spun) Evaluation Evaluation Baseline heart rate: 135 Variability: Moderate (11-25) monitor accelerations: Present Monitor Decelerations: Absent Category of Tracing: Reactive Status: Category l Diagnosis, Plan/Disposition Plan/Disposition Plan: 23 yo G1 presenting at 34w3d for low back pain. NST reactive but showing some uterine irritability. UA showing bacteria. Will treat for UTI. Has some nausea but this has resolved without tx and no fevers so will treat wtih oral abx. Return precuations for pyelo reviewed but at this time, feel comfortable with d/c home. F/up apt scheduled 2 days from now to ensure sx improving and to f/up culture Keflex 500mg BID x5 days Urine sent for culture return precuations reviewed OB Disposition: home
== END 2024-01-16 17:35 | disposition home or self-care (01) ==
PROVIDERS: Student in an Organized Health Care Education/Training Program; Admitting Provider Family Medicine; PCP Family Medicine; Referring Provider Family Medicine; Visit Provider Family Medicine
DX: O23.43 Unspecified infection of urinary tract in pregnancy, third trimester (principal); O26.893 Other specified pregnancy related conditions, third trimester; M54.50 Low back pain, unspecified; R11.2 Nausea with vomiting, unspecified; Z3A.34 34 weeks gestation of pregnancy
CPT/HCPCS: 59025; 81015; G0378; G0379

== ENCOUNTER → 2024-01-27 10:42 | Outpatient (CLI) | payer OTHER, MEDICAID, SELFPAY ==
[2024-01-19 14:30] VITALS: BMI 38.6
[2024-01-28 08:48] LABS: Strep Grp B PCR NEG for Grp B Strep
== END ==
PROVIDERS: PCP Family Medicine; Visit Provider Family Medicine
DX: Z34.00 Encounter for supervision of normal first pregnancy, unspecified trimester (principal); R30.0 Dysuria
CPT/HCPCS: 87086; 87653

== ENCOUNTER → 2024-02-02 14:49 | Outpatient (CLI) | payer OTHER, MEDICAID, SELFPAY ==
[2024-01-19 14:30] VITALS: BMI 38.6
--- NOTE | 2024-02-02 14:51 | DI.US.S_ITS ---
PROCEDURE: US OB LIMITED INDICATIONS: Growth of Fetus OUTSIDE/PRIOR DATING DATA: Last menstrual period (LMP): 05/20/2023. LMP-based estimated date of delivery (IRNO): 02/24/2024. First dating scan (date and location): 07/18/2023. Estimated date of delivery (IRON) from first dating scan: 02/24/2024. The calculations are made using the IRON of 02/24/2024. TECHNIQUE: Real-time scanning was performed of the fetus, with image documentation and biometric measurements. Endovaginal scanning: Not performed COMPARISON: [facility], OB FOLLOW UP, 10/31/2023, 15:23. FINDINGS: General: A single living intrauterine gestation is present. Presentation: Vertex. Placenta: Placental position is posterior , without previa. Amniotic fluid index: 20.5 cm, normal range is 5-24 cm. Single deepest vertical pocket is 7.6 cm. heart rate: 130 beats per minute. Maternal cervical canal: Not well seen biometrics: Biparietal diameter: 9.5 centimeters, 39 weeks 0 days Head circumference: 34.3 centimeters, 39 weeks 4 days Abdominal circumference: 34.0 centimeters, 37 weeks 6 days Femur length: 7.0 centimeters, 36 weeks 0 days Clinically estimated gestational age: 36 weeks 6 days Composite gestational age from present scan: 38 weeks 1 day Estimated weight and percentile: 3299 grams, 79 percent Other: Not applicable. IMPRESSION: Single live intrauterine consistent with 38 weeks and 1 day. Normal interval growth. We strive to produce accurate, complete, and clear reports of imaging services. To assist us in improving patient care, this report was composed using standard report templates and voice recognition software. Therefore, it may contain abnormal punctuation, insertions and/or omissions. Occasional wrong-word or sound-alike substitutions may occur. Though we review the report and make efforts to correct it, we do recommend that the report be read carefully in proper context to recognize any text inaccuracies. Dictated by: Lucas Marshall M.D. on 02/02/2024 at 16:06 Approved by: Lucas Marshall M.D. on 02/02/2024 at 16:07
== END ==
PROVIDERS: PCP Family Medicine; Referring Provider Family Medicine; Visit Provider Family Medicine
DX: Z03.74 Encounter for suspected problem with fetal growth ruled out (principal); Z3A.38 38 weeks gestation of pregnancy
CPT/HCPCS: 76815

== ENCOUNTER → 2024-02-16 15:01 | Outpatient (CLI) | payer OTHER, MEDICAID, SELFPAY ==
[2024-01-19 14:30] VITALS: BMI 38.6
[2024-02-16 17:00] LABS: Add Manual Diff / Slide Review NO; Basophils Absolute Auto 0 /uL (0-100); Basophils Percent Auto 0.3 % (0-2); Eosinophils Absolute Auto 100 /uL (0-450); Eosinophils Percent Auto 0.5 % (2-4); Hematocrit 37.9 % (36-46); Hemoglobin 12.8 g/dL (12.0-16.0); Lymphocytes Absolute Auto 1800 /uL (1100-4500); Lymphocytes Percent Auto 16.5 % (25-40); Mean Corpuscular HGB Conc 33.8 % (30-36); Mean Corpuscular Hemoglobin 29.7 PG (26-34); Mean Corpuscular Volume 87.7 fL (80-100); Monocytes Absolute Auto 400 /uL (0-900); Monocytes Percent Auto 3.9 % (3-14); Neutrophils Absolute Auto 8700 /uL (1500-7000); Neutrophils Percent Auto 78.8 % (50-75); Platelet Count 251 X10^3/uL (150-400); Red Blood Cell Count 4.32 X10^6/uL (4.0-5.2); Red Cell Distribution Width 13.7 % (11.6-14.8)
[2024-02-16 17:28] LABS: Alanine Aminotransferase 12 IU/L (<35); Albumin 3.3 g/dL (3.5-5.0); Alkaline Phosphatase 267 U/L (38-126); Aspartate Aminotransferase 21 IU/L (14-36); BUN Creatinine Ratio 26.4 (6-22); Bilirubin Total 0.4 mg/dL (0.2-1.3); Blood Urea Nitrogen 14 mg/dL (7-17); Calcium 9.1 mg/dL (8.4-10.2); Carbon Dioxide 16 mmol/L (22-32); Chloride 110 mmol/L (98-107); Estimated Glomerular Filt Rate > 60 mL/min (>60); Globulin 3.3 g/dL (1.7-4.1); Glucose 73 mg/dL (70-100); HEMOLYSIS < 15 (0-50); Sodium 134 mmol/L (137-145); Total Protein 6.6 g/dL (6.3-8.2)
[2024-02-16 18:17] LABS: Bilirubin Urine UA NEGATIVE (NEGATIVE); Color Urine UA YELLOW; Glucose Urine UA NEGATIVE (Negative); Ketones Urine UA NEGATIVE (NEGATIVE); Leukocyte Esterase Urine UA NEGATIVE (NEGATIVE); Nitrite Urine UA NEGATIVE (Negative); Occult Blood Urine UA NEGATIVE (Negative); Protein Urine UA NEGATIVE (Negative); Specific Gravity Urine UA >=1.030 (1.000-1.035); Urobilinogen Urine UA 0.2 E.U./dL (0.2)
[2024-02-16 18:22] LABS: Appearance Urine UA SL CLOUDY; Urine Volume 10mL (spun)
[2024-02-16 18:23] LABS: Culture Indicated Urine Cult Not Indicated
[2024-02-16 18:46] LABS: Creatinine Urine Random 154.31 mg/dL; Protein (Total) Urine Random 8 mg/dL (0-12); Protein Creatinine Ratio Urine 0.05 GRAM/24H
== END ==
PROVIDERS: PCP Family Medicine; Referring Provider Family Medicine; Visit Provider Family Medicine
DX: O16.9 Unspecified maternal hypertension, unspecified trimester (principal)
CPT/HCPCS: 80053; 81001; 82570; 84156; 85025

== ENCOUNTER 2024-02-16 19:06 | Inpatient (IN) | payer OTHER, MEDICAID, SELFPAY ==
[2024-01-19 14:30] VITALS: BMI 38.6
--- NOTE | 2024-02-16 21:32 | PM.OBHP.1 ---
OB HPI Date/Time Date of admission: 02/16/24 Date Patient Seen: 02/16/24 Time Patient Seen: 21:32 History of Present Condition Chief complaint: induction : 1 Para: 0 Estimated Date of Delivery: 02/24/24 Estimated Gestational Age (weeks): 38w5d Narrative: Fallon Acosta is a 23 year old sent in from clinic due to Bains, vision changes and elevated BP earlier today. On arrival here BP elevated to 157 systolic. Since then, Bps have fluctuated between 130s-140s systolic of 7-90s diastolic. She is still noting Bains. Labs collected this afternoon show nml AST/ALT, nml plts, urine PC of 0.05. Indications Indication for induction OB: gestational HTN/pre-eclampsia History of Present care: good care Dating criteria: LMP confirmed by 1st trimester US Ultrasounds: normal 1st trimester US and normal mid trimester US Obstetrical complications: gestational hypertension Medical complications: musculoskeletal and other (maternal cerebral palsy leading to significant pain in ) Preadmission Labs Blood type: 0 (-) negative -: Antibody screen: negative, GBS status: negative and HIV: negative -: Chlamydia screen: not detected (present at start of with SARABJIT on arrival for new OB at ) and Gonorrhea screen: not detected -: Rubella: not immune and Varicella: not immune HCT: 12.8 1 hr GTT: 92 Evaluation Evaluation Baseline heart rate: 135 Variability: Moderate (11-25) monitor accelerations: Present Monitor Decelerations: Absent Contraction Frequency (minutes): 0 Category of Tracing: Reactive Status: Category l Dilation (cm): 0 Effacement (%): 0 Dilation: Closed Effacement: 0-30% station: -4 Position of cervix: posterior Consistency: firm Coughlin score: 0 PFSH Medical History Acute cholecystitis Surgical History [place] teeth extracted History of ankle surgery History of hip surgery History of cholecystectomy (~04/2023) Family History Mother Migraines Bipolar disorder Smoker Father Bipolar disorder Cigar smoker Grandfather Diabetes mellitus Asthma Grandmother Blood clotting disorder Grandfather Heart disease Aunt Ovarian hypofunction Sister Mental health disorder Sister Epilepsy Social History marital status: number of children: 0 household members: spouse and family lives independently: Yes caregiver/support person: No housing: house pets and animals: Yes (cats & dog, family managing litter boxes) education level: high school occupational status: employed current occupational exposures/hazards: No special priya needs: No travel history: over 6 months ago seatbelt use: always water heater temp set < 120 deg: Yes working smoke detector in home: Yes fire extinguisher in home: Yes carbon monox detector in home: Yes firearms in home: No do you feel safe at home: Yes Smoking Status: Never smoker second hand exposure: No (DHEERAJ vapes, but not around pt) alcohol intake: never substance use type: marijuana during the past year weight has: remained stable well-balanced diet: rarely or never daily servings fruits/ve-1 caffeine: Yes (counseled to avoid energy drinks in favor of coffee/tea within 200 mg limit) Type(s) of exercise: walking frequency: 1-2 times per week Meds Home Medications and Allergies Home Medications Medication Instructions Recorded Confirmed Type [id number] 400 mcg-om3 35 mg-dha 25 tab PO 08/11/23 02/16/24 History mg-epa 5 mg-fish oil chewable tablet Belly band #1 ea 10/13/23 02/16/24 Rx hydroxyzine pamoate 25 mg capsule 25 mg PO TID PRN for anxiety #60 10/13/23 02/16/24 Rx (Vistaril) caps fluoxetine 40 mg capsule 40 mg PO DAILY #90 caps 12/19/23 02/16/24 Rx cyclobenzaprine 10 mg tablet 10 mg PO BEDTIME PRN muscle spasm 02/02/24 02/16/24 Rx #30 tabs Allergies Allergy/AdvReac Type Severity Reaction Status Date / Time No Known Drug Allergies Allergy Verified 02/16/24 13:51 Review of Systems Review of Systems Narrative: + Bains + vision changes (blurry vision) + back pain - vaginal bleeding - Vaginal dischare OB Exam Vital signs Blood Pressure: 142/73 Pulse Rate: 115 Temperature: 36.2 F Narrative Exam Narrative: Gen: tearful, uncomfortable appearing but no acute illness Pulm: breathing comfortbaly on RA CV: warm and well perfused Abd: gravid MSK: 1+ edema, stable SVE: closed/thick/high/firm/posterior --> exam very painful Assessment and Plan Assessment and Plan Assessment and Plan narrative: Fallon Acosta is a 23 year old sent in from clinic due to Bains, vision changes and elevated BP earlier today now meeting criteria for gestational HTN. Labs collected this afternoon show nml AST/ALT, nml plts, urine PC of 0.05. SVE closed/thick /high. Based on new dx of gHTN, pt now qualifies for mIOL but at this time no staffing available for cervical ripening. Discussed options of 1, start antihypertensives then d/c home wt f/up BP check tomorrow, 2. admit for obs overnight and start antihypertensives wt NST overnight and BP monitoring 3, transfer to outside hospital for induction elsewhere. Will admit overnight and start antihypertensives with hope to be able to start induction once staffing allows ##gHTN: - admit to obs - start Labetolol 200mg BID - BP checked per induced HTN protocol - Vistaril for anxiety and sleep - Once staffing allows, start mIOL - intermittent monitoring overnight - infant cephalic on recent bedside US - GBs negative ## BAINS: - vistaril for sleep - Flexeril for muscel spasm Time-Based Coding :: 75 spent with patient and on the chart (including review of chart, obtaining history, exam, reviewing outside data, placing orders, documenting exam and treatment plan, and counseling patient) on 02/15.
[2024-02-16 21:42] VITALS: BP 142/73; PULSE 115; TEMP 2.3; TEMP 36.2
[2024-02-16] MEDS: ZOLPIDEM 5 MG TABLET 10 MG PO (21:58)
[2024-02-16] MEDS: ACETAMINOPHEN 325 MG TABLET 975 MG PO (21:58)
[2024-02-16] MEDS: LABETALOL 100 MG TABLET 200 MG PO (21:58)
[2024-02-17 06:29] LABS: Add Manual Diff / Slide Review NO; Basophils Absolute Auto 0 /uL (0-100); Basophils Percent Auto 0.4 % (0-2); Eosinophils Absolute Auto 100 /uL (0-450); Eosinophils Percent Auto 0.6 % (2-4); Hematocrit 34.7 % (36-46); Hemoglobin 11.9 g/dL (12.0-16.0); Lymphocytes Absolute Auto 1800 /uL (1100-4500); Mean Corpuscular HGB Conc 34.3 % (30-36); Mean Corpuscular Hemoglobin 29.9 PG (26-34); Mean Corpuscular Volume 87.4 fL (80-100); Monocytes Absolute Auto 500 /uL (0-900); Neutrophils Absolute Auto 6000 /uL (1500-7000); Platelet Count 222 X10^3/uL (150-400); Red Blood Cell Count 3.97 X10^6/uL (4.0-5.2); Red Cell Distribution Width 13.9 % (11.6-14.8); White Blood Cell Count 8.4 X10^3/uL (4.5-11.0)
[2024-02-17 06:41] LABS: Alanine Aminotransferase 13 IU/L (<35); Albumin 3.1 g/dL (3.5-5.0); Albumin Globulin Ratio 0.9 (1.0-2.8); Alkaline Phosphatase 223 U/L (38-126); Aspartate Aminotransferase 21 IU/L (14-36); BUN Creatinine Ratio 25.9 (6-22); Bilirubin Total 0.3 mg/dL (0.2-1.3); Blood Urea Nitrogen 14 mg/dL (7-17); Carbon Dioxide 20 mmol/L (22-32); Chloride 109 mmol/L (98-107); Estimated Glomerular Filt Rate > 60 mL/min (>60); Globulin 3.3 g/dL (1.7-4.1); Glucose 80 mg/dL (70-100); HEMOLYSIS < 15 (0-50); Potassium 3.6 mmol/L (3.4-5.1); Sodium 134 mmol/L (137-145); Total Protein 6.4 g/dL (6.3-8.2); Uric Acid 6.3 mg/dL (2.5-6.2)
--- NOTE | 2024-02-17 08:11 | PM.OBPNLAB ---
Date/Time Date Patient Seen: 02/17/24 Time Patient Seen: 07:15 Pain Control Pain control: tolerating well Pelvic Exam Dilation (cm): 0 Effacement (%): 0 station: -4 Contractions Contractions on admission: none Status status: Category l Assessment and Plan Comments: Fallon Acosta is a 23 year old sent in from clinic due to Ramírez, vision changes and elevated BP yesterday now meeting criteria for gestational HTN. Labs collected this yesterday show nml AST/ALT, nml plts, urine PC of 0.05. SVE closed/thick /high. Based on new dx of gHTN, pt now qualifies for mIOL. STaffing allowing for mIOL to start this AM, will start with cervical ripening with misoprosol ##mIOL: - admit to inpt LD - Start Misoprostol PO 25mcg, increase to 50mcg for next dose if toelrates 25 - continue trending BPs - intermittent monitoring - GBS neg - Cephalic by bedside US today ##gHTN: - start Labetolol 200mg BID - BP checked per induced HTN protocol - Vistaril for anxiety and sleep - intermittent monitoring overnight - infant cephalic on recent bedside US - GBs negative ## RAMÍREZ: - vistaril for sleep - Flexeril for muscel spasm
[2024-02-17] MEDS: miSOPROStoL 25 MCG TABLET PO (08:45)
[2024-02-17 09:03] VITALS: BP 140/64; PULSE 96
[2024-02-17] MEDS: LABETALOL 100 MG TABLET 200 MG PO ×2 (09:03→21:15)
[2024-02-17] MEDS: CALCIUM CARBONATE 500 MG TAB PO (09:03)
[2024-02-17 11:24] VITALS: BP 143/73
[2024-02-17] MEDS: miSOPROStoL 25 MCG TABLET 50 MCG PO ×3 (12:56→21:15)
[2024-02-17] MEDS: fentaNYL 100 MCG/2 ML INJ 50 MCG IV ×2 (13:17→22:52)
[2024-02-17 13:46] LABS: Creatinine Urine Random 247.59 mg/dL; Protein (Total) Urine Random 7 mg/dL (0-12); Protein Creatinine Ratio Urine 0.02 GRAM/24H
[2024-02-17 16:33] LABS: Urine N gonorrhoeae NOT DETECTED
[2024-02-17 16:42] LABS: Urine Chlamydia NOT DETECTED
--- NOTE | 2024-02-17 20:57 | PM.OBPNLAB ---
Date/Time Date Patient Seen: 02/17/24 Time Patient Seen: 18:00 Pain Control Pain control: tolerating well Pelvic Exam Effacement (%): 0 station: -4 Contractions Contractions on admission: none Monitor mode: External Contraction pattern: Irregular Status status: Category l Heart Rate Baseline: 150 Monitor Accelerations: Present Monitor Decelerations: Absent Monitor Variability: Moderate Assessment and Plan Assessment: induction ongoing Comments: Fallon Acosta is a 23 year old sent in from clinic due to Ramírez, vision changes and elevated BP yesterday now meeting criteria for gestational HTN. Labs collected this yesterday show nml AST/ALT, nml plts, urine PC of 0.05. SVE closed/thick /high. Based on new dx of TN, pt now qualifies for mIOL. STaffing allowing for mIOL to start this AM, will start with cervical ripening with misoprosol ##mIOL: - S/p Misoprostol PO 25mcg x1 50mcg x3 - harper balloon placed at 1pm today, will need to be removed at 1am tonight - plan for CErvadil placement at that time unless cervix is favorable - continue trending BPs - intermittent monitoring - GBS neg - Cephalic by bedside US today ##gHTN: - start Labetolol 200mg BID - BP checked per induced HTN protocol - Vistaril for anxiety and sleep - intermittent monitoring overnight - infant cephalic on recent bedside US - GBs negative ## RAMÍREZ: - vistaril for sleep - Flexeril for muscel spasm
[2024-02-17 21:15] VITALS: BP 134/60; PULSE 77
[2024-02-17] MEDS: ZOLPIDEM 5 MG TABLET 10 MG PO (22:34)
[2024-02-18] VITALS (7 sets, daily range): BP systolic 109–176; BP diastolic 67–88; PULSE 64–93; RESP 12–18; TEMP 36.4–36.6; O2SAT 97–98
[2024-02-18] MEDS: miSOPROStoL 25 MCG TABLET 50 MCG PO (01:04)
[2024-02-18] MEDS: CYCLOBENZAPRINE 10 MG TABLET PO (04:05)
[2024-02-18] MEDS: LACTATED RINGERS 1,000 ML 75 ML IV ×2 (05:16→12:44)
--- NOTE | 2024-02-18 05:26 | PM.AN.REGBLK ---
Regional Block Pre-procedure PMH/ROS narrative: active labor PSH/Anesthesia history narrative: orthopedic surgeries in childhood 2/2 cerebral palsy ASA Class: II Labs: Hct 34.7 % (36-46) L 02/17/24 05:40 Plt Count 222 X10^3/uL (150-400) 02/17/24 05:40 Medications: Current Medications Generic Name Dose Route Start Last Admin Trade Name Freq PRN Reason Stop Dose Admin Calcium Carbonate 500 mg 02/17/24 08:37 02/17/24 09:03 Calcium Carbonate 500 Mg Tab PO 500 mg PRN PRN Administration Dyspepsia Calcium Carbonate 1,000 mg 02/17/24 09:16 Calcium Carbonate 500 Mg Tab PO Q2HR PRN Dyspepsia Carboprost Tromethamine 250 mcg 02/17/24 09:08 Carboprost 250 Mcg/Ml Ampul IM Q90M PRN Bleeding Cyclobenzaprine HCl 10 mg 02/16/24 21:29 02/18/24 04:05 Cyclobenzaprine 10 Mg Tablet PO 10 mg Q8HR PRN Administration Spasms Fentanyl 50 mcg 02/17/24 09:16 02/17/24 22:52 Fentanyl 100 Mcg/2 Ml Inj IV 50 mcg Q1H PRN Administration Pain, Moderate (4-6) Hydroxyzine HCl 50 mg 02/16/24 21:30 Hydroxyzine Hcl 25 Mg Tablet PO Q6H PRN Nausea, insomnia Oxytocin/Lactated Ringer's 30 unit in 500 mls @ 200 mls/hr 02/17/24 09:08 Oxytocin Premix IV CONT PRN Bleeding Protocol Tranexamic Acid 1,000 mg/ 100 mls @ 600 mls/hr 02/17/24 09:08 Sodium Chloride IV NOW PRN Bleeding Labetalol HCl 20 mg 02/16/24 21:25 Labetalol 20 Mg/4 Ml Syringe IV PRN PRN SBP>= 160 or DBP >=110 Protocol Labetalol HCl 200 mg 02/16/24 21:45 02/17/24 21:15 Labetalol 100 Mg Tablet PO 200 mg BID CHELSEA Administration Lidocaine HCl 20 ml 02/17/24 09:08 Lidocaine 1% 20 Ml INJ INTRA-OP PRN Post Delivery Methylergonovine Maleate 0.2 mg 02/17/24 09:08 Methylergonovine 0.2 Mg Tablet PO Q6HR PRN Heavy Bleeding Methylergonovine Maleate 0.2 mg 02/17/24 09:08 Methylergonovine 0.2 Mg/Ml Vial IM NOW PRN Bleeding Mineral Oil 30 ml 02/17/24 09:08 Mineral Oil 30 Ml Udc TOP PRN PRN Version Misoprostol 50 mcg 02/17/24 12:15 02/18/24 01:04 Misoprostol 25 Mcg Tablet PO 50 mcg Q4H CHELSEA Administration Misoprostol 800 mcg 02/17/24 09:08 Misoprostol 200 Mcg Tablet AK NOW PRN Bleeding Misoprostol 400 mcg 02/17/24 09:08 Misoprostol 200 Mcg Tablet SL NOW PRN Bleeding Naloxone HCl 0.2 mg 02/17/24 09:08 Naloxone 0.4 Mg/Ml Vial IV Q2MIN PRN Opiate Reversal Ondansetron HCl 4 mg 02/17/24 09:16 Ondansetron 4 Mg/2 Ml Inj IV Q4HR PRN Nausea And Vomiting Oxytocin 10 unit 02/17/24 09:08 Oxytocin 10 Unit/Ml Vial IM NOW PRN Bleeding Zolpidem Tartrate 10 mg 02/16/24 21:29 02/17/24 22:34 Zolpidem 5 Mg Tablet PO 10 mg BEDTIME PRN Administration Sleep Allergies: Allergies Allergy/AdvReac Type Severity Reaction Status Date / Time No Known Drug Allergies Allergy Verified 02/16/24 13:51 Procedure Insertion date: 02/18/24 Insertion time: 05:05 Prep/Local: betadine x3 (chloraprep) Interspace: l3 l4 Patient position: sitting Needle: 17 gauge Tuohy Loss of resistance with: saline LEI at (cm): 6 Catheter placed at SKIN (cm): 15 Insertion: No CSF, No Blood, No Paresthesia with insertion, No Paresthesia with injection and No Test dose reaction Initial Medications TEST DOSE time: 05:07 TEST DOSE: 1.5% lidocaine with epinephrine 1:200k (mL): 2 BOLUS DOSE time: 05:10 BOLUS DOSE (mL): 5 BOLUS DOSE med: 0.125% bupivacaine with fentanyl 10 mcg/mL Infusion INFUSION: 0.0625% bupivacaine and with fentanyl 2 mcg/mL Initial rate (mL/hr): 8 Post-procedure Anesthesia date START: 02/18/24 Anesthesia time START: 04:47
[2024-02-18] MEDS: OXYTOCIN PREMIX 30 UNIT/500 ML PLAST..BAG IV (06:42)
[2024-02-18] MEDS: ONDANSETRON 4 MG/2 ML INJ IV ×2 (07:59→11:43)
--- NOTE | 2024-02-18 09:00 | PM.OBPNLAB ---
Date/Time Date Patient Seen: 02/18/24 Time Patient Seen: 09:01 Pain Control Pain control: tolerating well and epidural Pelvic Exam Dilation (cm): 4 Effacement (%): 70 station: -2 Amniotic membrane status: Ruptured Contractions Date/Time contractions began: q1-3 min Monitor mode: External Pitocin rate (mU/min): 2 Contraction pattern: Irregular Status Heart Rate Baseline: 130 Monitor Accelerations: Present Monitor Decelerations: Early Monitor Variability: Moderate Assessment and Plan Comments: 23 year old at 39w1d here for IOL for new gHTN Induction moving along. S/p FB and miso. SROM at 08:11 this AM for clear fluid. Continue pitocin augmentation. Recheck in 4h, sooner PRN. FHT category 1. GBS negative. Comfortable with epidural. Bps at goal, lower with recent bolus - switch labetalol to 100 mg BID for now. Adding AM labs. Continue Fluoxetine QD for anxiety.
[2024-02-18] MEDS: LABETALOL 100 MG TABLET PO ×2 (09:26→22:44)
[2024-02-18] MEDS: FLUoxetine 20 MG CAPSULE 40 MG PO (09:44)
[2024-02-18 09:48] LABS: Add Manual Diff / Slide Review NO; Basophils Absolute Auto 100 /uL (0-100); Basophils Percent Auto 0.5 % (0-2); Eosinophils Absolute Auto 100 /uL (0-450); Eosinophils Percent Auto 0.4 % (2-4); Hematocrit 37.4 % (36-46); Hemoglobin 12.6 g/dL (12.0-16.0); Lymphocytes Absolute Auto 1500 /uL (1100-4500); Lymphocytes Percent Auto 12.2 % (25-40); Mean Corpuscular HGB Conc 33.8 % (30-36); Mean Corpuscular Hemoglobin 29.7 PG (26-34); Mean Corpuscular Volume 87.8 fL (80-100); Monocytes Absolute Auto 600 /uL (0-900); Monocytes Percent Auto 5.3 % (3-14); Neutrophils Absolute Auto 9800 /uL (1500-7000); Neutrophils Percent Auto 81.6 % (50-75); Platelet Count 226 X10^3/uL (150-400); Red Blood Cell Count 4.26 X10^6/uL (4.0-5.2)
[2024-02-18 09:58] LABS: Alanine Aminotransferase 14 IU/L (<35); Albumin 3.6 g/dL (3.5-5.0); Albumin Globulin Ratio 1.1 (1.0-2.8); Alkaline Phosphatase 234 U/L (38-126); Aspartate Aminotransferase 21 IU/L (14-36); BUN Creatinine Ratio 22.2 (6-22); Bilirubin Total 0.4 mg/dL (0.2-1.3); Blood Urea Nitrogen 14 mg/dL (7-17); Carbon Dioxide 19 mmol/L (22-32); Chloride 111 mmol/L (98-107); Estimated Glomerular Filt Rate > 60 mL/min (>60); Globulin 3.2 g/dL (1.7-4.1); Glucose 88 mg/dL (70-100); HEMOLYSIS < 15 (0-50); Potassium 4.1 mmol/L (3.4-5.1); Sodium 136 mmol/L (137-145); Total Protein 6.8 g/dL (6.3-8.2)
--- NOTE | 2024-02-18 11:28 | PM.OBPNLAB ---
Date/Time Date Patient Seen: 02/18/24 Time Patient Seen: 11:28 Pain Control Comments: Pain out of control despite multiple epidural boluses Pelvic Exam Dilation (cm): 4 Effacement (%): 70 station: -2 Amniotic membrane status: Ruptured Contractions Date/Time contractions began: q2-3 minutes Monitor mode: External Contraction pattern: Irregular Status status: Category l Monitor Accelerations: Present Monitor Decelerations: Early Assessment and Plan Comments: Patient's pain still poorly control despite multiple boluses. Patient electing for primary section at this time as unable to tolerate labor. Full consent completed - discussing risks including hemorrhage, infection, organ injury, abnormal placentation, etc. Pre-op orders including ancef per routine
[2024-02-18] MEDS: LABETALOL 20 MG/4 ML SYRINGE IV (11:31)
[2024-02-18] MEDS: CITRIC ACID/SODIUM CITRATE 15 ML SOLUTION 30 ML PO (11:52)
--- NOTE | 2024-02-18 12:34 | SUR.OPER ---
Supine on Padded OR bed, head on pillow, safety belt at thigh, arms secured on padded arm boards at <90 degrees abduction. Bump under right buttock. Legs uncrossed with pillow under knees, gel pad to heels, tape over blanket to lower legs.
[2024-02-18] MEDS: ACETAMINOPHEN IV 1,000 MG/100 ML VIAL 400 MG IV (12:35)
[2024-02-18] MEDS: CEFAZOLIN 2 GM/100 ML PREMIX 100 ML IV (12:44)
[2024-02-18] MEDS: AZITHROMYCIN 500 MG in DEXTROSE 5% IN WATER 250 ML 250 MG IV (13:10)
--- NOTE | 2024-02-18 13:34 | P.OP_ITS ---
Operative Date/Time/Diagnoses Date of procedure: 02/18/24 Pre-op diagnosis: 39w1d gestation, gHTN, elective primary for intolerance of labor remote from delivery Post-op diagnosis: same Procedure & Clinicians Procedure: primary with IUD placement Same procedure as scheduled: Yes Indications: elective Surgeon: Coleen Viera Curriculum Developer: Leticia Hodge Reason for Curriculum Developer: adequate exposure Operative Notes Estimated Blood Loss (mL): 800 Procedure in detail: OPERATIVE COURSE: The patient was taken to the operating room where epidural was removed and spinal anesthesia was placed. She was then prepared and draped in the normal sterile fashion in the dorsal supine position with a leftward tilt. Anesthesia was tested and found to be adequate. A Pfannensteil skin incision was then made with the scalpel and carried through to the underlying layer of fascia with the scalpel. The fascia was incised in the midline and the incision extended later ally with the Cruz scissors. The superior aspect of the fascial incision was then grasped with Chon clamps, elevated with the help of the campus administrative assistant, and the underlying rectus muscles dissected off bluntly and sharply where needed. Attention was then turned to the inferior aspect of the incision which, in a similar fashion, was grasped, tented up with Chon clamps, and the rectus muscle dissected off bluntly and sharply with Cruz scissors. The rectus muscles were then in the midline, and the peritoneum was identified and entered bluntly. The peritoneal incision was then extended with good visualization of the bladder. Retraction was provided by the campus administrative assistant. The bladder blade was then inserted and the lower uterine segment incised in a transverse fashion with the scalpel, with the campus administrative assistant providing suction. The uterine incision was then extended superolaterally by pulling superolaterally on both sides. The bladder blade was removed the infant's head was flexed out of QUIN position and delivered atraumatically, with fundal pressure by the campus administrative assistant. The nose and mouth were suctioned with bulb suction and the cord was clamped and cut. The was handed off to the waiting nursing staff. Cord blood was collected. The placenta was then delivered manually with gentle cord traction. The uterus was then exteriorized and cleared of all clots and debris. Mirena IUD inserted. The uterine incision was repaired with 0 vicryl in a running, locked fashion. A second layer of the same suture was used to obtain excellent hemostasis. The uterus was returned to the abdomen. The gutters were cleared of all clots. Hysterotomy was investigated and found to be hemostatic. The fascia was reapproximated with 0 vicryl in a running fashion x 2. The subcutaneous tissue was reapproximated with 3-0 vicryl. The skin was closed with 4-0 monocryl. The campus administrative assistant helped with retraction during closures. IUD strings then t rimmed after expression. SPONGE AND NEEDLE COUNTS: Correct x3. DRESSING: pressure with steri strips ANTICOAGULATION: SCDs applied prior to Surgery Preop antibiotics given (see MAR). The patient was taken to recovery room having tolerated procedure well. Complications: none Post-operative Condition: stable Disposition: PACU Aftercare: routine postop
[2024-02-18] MEDS: diphenhydrAMINE 50 MG/ML VIAL 25 MG IV ×2 (15:23→18:49)
[2024-02-18] MEDS: ACETAMINOPHEN 325 MG TABLET 650 MG PO ×2 (16:54→23:21)
[2024-02-18] MEDS: KETOROLAC 30 MG/ML VIAL IV (18:41)
[2024-02-18] MEDS: RHO(D) IMMUNE GLOBULIN 1,500 UNIT SYRINGE 1500 UNIT IM (22:47)
[2024-02-19] MEDS: KETOROLAC 30 MG/ML VIAL IV (02:10)
[2024-02-19] MEDS: LACTATED RINGERS 500 ML 999 ML IV (02:15)
[2024-02-19] MEDS: LACTATED RINGERS 1,000 ML 125 ML IV (03:30)
[2024-02-19 08:45] VITALS: BP 113/65; PULSE 88
[2024-02-19] MEDS: LABETALOL 100 MG TABLET PO (08:45)
[2024-02-19] MEDS: DOCUSATE 100 MG CAPSULE PO (08:47)
[2024-02-19] MEDS: FLUoxetine 20 MG CAPSULE 40 MG PO (08:48)
[2024-02-19] MEDS: FERROUS SULFATE 325 MG TABLET PO (08:48)
[2024-02-19] MEDS: IBUPROFEN 600 MG TABLET PO ×3 (08:59→21:04)
[2024-02-19] MEDS: PRENATAL VIT,CALC/IRON/FOLIC 1 TABLET 1 TAB PO (09:00)
--- NOTE | 2024-02-19 09:46 | P.PN_ITS ---
Subjective Subjective Date Patient Seen: 02/19/24 Time Patient Seen: 09:46 Interval history: Feeling well. Pain well controlled. Mood has been good. Got some sleep. Lochia normal per nursing. Ambulated last night without issue. Passing gas. Struggling some with breast feeding - good latch but no colostrum production yet. Supplementing with formula. Exam Vital Signs (past 8 hours): - 02/19/24 08:45 Pulse Rate 88 Blood Pressure 113/65 Oxygen Delivery Method Room Air Narrative Exam Narrative: GEN: NAD, well appearing, pleasant CV: RRR Pulm:normal WOB, CTAB Abd: fundus firm, below U. Incision C/D/I Skin: no visible rashes, WWP Psych: normal affect Neuro: normal gait, symmetric movement Objective Labs 02/18/24 09:40 02/18/24 09:40 Labs: Laboratory Results - last 24 hr 02/18/24 09:40 WBC 12.0 H RBC 4.26 Hgb 12.6 Hct 37.4 MCV 87.8 MCH 29.7 MCHC 33.8 RDW 14.0 Plt Count 226 Neut % (Auto) 81.6 H Lymph % (Auto) 12.2 L [place] % (Auto) 5.3 Eos % (Auto) 0.4 L Baso % (Auto) 0.5 Neut # (Auto) 9800 H Lymph # (Auto) 1500 [place] # (Auto) 600 Eos # (Auto) 100 Baso # (Auto) 100 Sodium 136 L Potassium 4.1 Chloride 111 H Carbon Dioxide 19 L BUN 14 Creatinine 0.63 Estimated GFR > 60 BUN/Creatinine Ratio 22.2 H Glucose 88 Calcium 9.0 Total Bilirubin 0.4 AST 21 ALT 14 Alkaline Phosphatase 234 H Total Protein 6.8 Albumin 3.6 Globulin 3.2 Albumin/Globulin Ratio 1.1 [facility] Medical History Acute cholecystitis Surgical History [place] teeth extracted History of ankle surgery History of hip surgery History of cholecystectomy (~04/2023) Family History Mother Migraines Bipolar disorder Smoker Father Bipolar disorder Cigar smoker Grandfather Diabetes mellitus Asthma Grandmother Blood clotting disorder Grandfather Heart disease Aunt Ovarian hypofunction Sister Mental health disorder Sister Epilepsy Social History marital status: number of children: 0 household members: spouse and family lives independently: Yes caregiver/support person: No housing: house pets and animals: Yes (cats & dog, family managing litter boxes) education level: high school occupational status: employed current occupational exposures/hazards: No special priya needs: No travel history: over 6 months ago seatbelt use: always water heater temp set < 120 deg: Yes working smoke detector in home: Yes fire extinguisher in home: Yes carbon monox detector in home: Yes firearms in home: No do you feel safe at home: Yes Smoking Status: Never smoker second hand exposure: No (DHEERAJ vapes, but not around pt) alcohol intake: never substance use type: marijuana during the past year weight has: remained stable well-balanced diet: rarely or never daily servings fruits/ve-1 caffeine: Yes (counseled to avoid energy drinks in favor of coffee/tea within 200 mg limit) Type(s) of exercise: walking frequency: 1-2 times per week Assessment & Plan Assessment and plan (1) S/P section: Status: Acute (2) Gestational HTN: Qualifiers: Trimester: third trimester Qualified Code(s): O13.3 - Gestational [-induced] hypertension without significant proteinuria, third trimester Status: Acute (3) JUDI (generalized anxiety disorder): Status: Acute Plan Recovering well Monitor UOP closely - vitals otherwise reassuring, suspect due to poor intake. Received 500 cc bolus overnight. Labs pending for this AM. Take out harper this morning. Ambulate as able consult tomorrow Continue feeding q2-3 triple feeds for now Mood has been good - continue fluoxetine Bps at goal - consider stopping labetalol tonight, labs pending for this AM Time-Based Coding :: [TOTAL MINUTES] spent with patient and on the chart (including review of chart, obtaining history, exam, reviewing outside data, placing orders, documenting exam and treatment plan, and counseling patient) on [DATE]. PROFEE Charge codes Subsequent inpatient/observation care: [id number]
[2024-02-19 10:15] LABS: Add Manual Diff / Slide Review NO; Basophils Absolute Auto 0 /uL (0-100); Basophils Percent Auto 0.4 % (0-2); Eosinophils Absolute Auto 0 /uL (0-450); Eosinophils Percent Auto 0.3 % (2-4); Hematocrit 29.9 % (36-46); Hemoglobin 10.2 g/dL (12.0-16.0); Lymphocytes Absolute Auto 1900 /uL (1100-4500); Lymphocytes Percent Auto 16.2 % (25-40); Mean Corpuscular HGB Conc 34.2 % (30-36); Mean Corpuscular Volume 87.8 fL (80-100); Monocytes Absolute Auto 600 /uL (0-900); Monocytes Percent Auto 5.6 % (3-14); Neutrophils Absolute Auto 8900 /uL (1500-7000); Neutrophils Percent Auto 77.5 % (50-75); Platelet Count 208 X10^3/uL (150-400); Red Cell Distribution Width 14.2 % (11.6-14.8); White Blood Cell Count 11.5 X10^3/uL (4.5-11.0)
[2024-02-19 10:28] LABS: Alanine Aminotransferase 14 IU/L (<35); Albumin 3.1 g/dL (3.5-5.0); Albumin Globulin Ratio 1.1 (1.0-2.8); Alkaline Phosphatase 194 U/L (38-126); Aspartate Aminotransferase 34 IU/L (14-36); BUN Creatinine Ratio 23.4 (6-22); Bilirubin Total 0.4 mg/dL (0.2-1.3); Blood Urea Nitrogen 15 mg/dL (7-17); Calcium 8.9 mg/dL (8.4-10.2); Carbon Dioxide 21 mmol/L (22-32); Chloride 108 mmol/L (98-107); Estimated Glomerular Filt Rate > 60 mL/min (>60); Globulin 2.9 g/dL (1.7-4.1); Glucose 69 mg/dL (70-100); HEMOLYSIS < 15 (0-50); Potassium 4.1 mmol/L (3.4-5.1); Sodium 133 mmol/L (137-145)
[2024-02-19] MEDS: ACETAMINOPHEN 325 MG TABLET 650 MG PO ×2 (11:02→18:18)
--- NOTE | 2024-02-19 12:12 | CM.SWNOTE ---
MINERAL ENGINEER Note MINERAL ENGINEER team receives consult, RN seeking support for new parents. MINERAL ENGINEER reviews chart and discussing patient and baby with RN. It is reported that patient has hx of CP, parents are appropriate with baby but there is concern that they are reliant on family members when they are present. MINERAL ENGINEER enters room to meet with patient, present in room is patient's spouse, and mother. It is reported that patient's mother is visiting from [place] and plans to stay for the next month. Patient and spouse reside in [place] with spouse's family. It is reported that they have a crib, bassinet and changing table and are prepared for their baby 'Ranjan' to return home upon d/c. It is reported that they have a big support system from both sides of the family and they are all looking forward to meeting their baby. Patient reports that she and spouse both work at [employer] and they are currently on maternity and paternity leave. Patient has upcoming f/u appts with provider Dr. Farrell, it is reported that baby will be established with this PCP as well. MINERAL ENGINEER observes patient and family to be appropriate with baby. Patient's mother holds baby while present. MINERAL ENGINEER discusses visiting Nurse services Maternity services through [facility], patient and spouse indicate agreement and understanding. MINERAL ENGINEER submits referral to [facility], it is reported that patient will be contacted in 24-48 hours. MINERAL ENGINEER provides patient and spouse with resources and information about a support group in [place]. MINERAL ENGINEER reviews this with RN. Patient to d/c to home with spouse, family and baby upon medical clearance. Patient and baby to f/u with PCP for ongoing outpatient care and visiting nurse program to f/u with patient and family. Eugenia Henley, FEATHER SEPARATOR
[2024-02-20] MEDS: ACETAMINOPHEN 325 MG TABLET 650 MG PO ×3 (00:03→13:04)
[2024-02-20] MEDS: IBUPROFEN 600 MG TABLET PO ×3 (04:23→18:10)
[2024-02-20] MEDS: PRENATAL VIT,CALC/IRON/FOLIC 1 TABLET 1 TAB PO (07:38)
[2024-02-20] MEDS: DOCUSATE 100 MG CAPSULE PO (07:38)
[2024-02-20] MEDS: LANOLIN OINT 7 GM 1 APPLIC TOP (07:38)
[2024-02-20] MEDS: FERROUS SULFATE 325 MG TABLET PO (07:38)
[2024-02-20] MEDS: polyethylene glycoL 3350 17 GM POWD.PACK PO (07:39)
[2024-02-20] MEDS: FLUoxetine 20 MG CAPSULE 40 MG PO (08:05)
[2024-02-20] MEDS: OXYCODONE IR 5 MG TABLET PO (08:09)
[2024-02-20] MEDS: LABETALOL 100 MG TABLET 200 MG PO (08:10)
--- NOTE | 2024-02-20 08:45 | PM.PN.1 ---
Subjective Subjective Date Patient Seen: 02/20/24 Time Patient Seen: 00:45 Interval history: Doing well. Got some sleep. Mom here helping. Feeding going better - doing triple feeds. Lochia appropriate, no clots. Up ambulating without issues. UOP improved. Eating well. Passing gas. No BAINS, increasing LE edema, RUQ pain, vision changes. Exam Vital Signs (past 8 hours): Oxygen Delivery Method Room Air Narrative Exam Narrative: GEN: NAD, well appearing, pleasant CV: RRR Pulm:normal WOB, CTAB Abd: fundus firm, below U; incision CDI Skin: no visible rashes, WWP Psych: normal affect Objective Labs 02/19/24 10:07 02/19/24 10:07 Labs: Laboratory Results - last 24 hr 02/19/24 10:07 WBC 11.5 H RBC 3.40 L Hgb 10.2 L Hct 29.9 L MCV 87.8 MCH 30.0 MCHC 34.2 RDW 14.2 Plt Count 208 Neut % (Auto) 77.5 H Lymph % (Auto) 16.[address] [place] % (Auto) 5.6 Eos % (Auto) 0.3 L Baso % (Auto) 0.4 Neut # (Auto) 8900 H Lymph # (Auto) 1900 [place] # (Auto) 600 Eos # (Auto) 0 Baso # (Auto) 0 Sodium 133 L Potassium 4.1 Chloride 108 H Carbon Dioxide 21 L BUN 15 Creatinine 0.64 Estimated GFR > 60 BUN/Creatinine Ratio 23.4 H Glucose 69 L Calcium 8.9 Total Bilirubin 0.4 AST 34 ALT 14 Alkaline Phosphatase 194 H Total Protein 6.0 L Albumin 3.1 L Globulin 2.9 Albumin/Globulin Ratio 1.1 [facility] Medical History Acute cholecystitis Surgical History [place] teeth extracted History of ankle surgery History of hip surgery History of cholecystectomy (~04/2023) Family History Mother Migraines Bipolar disorder Smoker Father Bipolar disorder Cigar smoker Grandfather Diabetes mellitus Asthma Grandmother Blood clotting disorder Grandfather Heart disease Aunt Ovarian hypofunction Sister Mental health disorder Sister Epilepsy Social History marital status: number of children: 0 household members: spouse and family lives independently: Yes caregiver/support person: No housing: house pets and animals: Yes (cats & dog, family managing litter boxes) education level: high school occupational status: employed current occupational exposures/hazards: No special priya needs: No travel history: over 6 months ago seatbelt use: always water heater temp set < 120 deg: Yes working smoke detector in home: Yes fire extinguisher in home: Yes carbon monox detector in home: Yes firearms in home: No do you feel safe at home: Yes Smoking Status: Never smoker second hand exposure: No (DHEERAJ vapes, but not around pt) alcohol intake: never substance use type: marijuana during the past year weight has: remained stable well-balanced diet: rarely or never daily servings fruits/ve-1 caffeine: Yes (counseled to avoid energy drinks in favor of coffee/tea within 200 mg limit) Type(s) of exercise: walking frequency: 1-2 times per week Assessment & Plan Assessment and plan (1) JUDI (generalized anxiety disorder): Status: Acute (2) Gestational HTN: Qualifiers: Trimester: third trimester Qualified Code(s): O13.3 - Gestational [-induced] hypertension without significant proteinuria, third trimester Status: Acute (3) S/P section: Status: Acute Plan Recovering well. Meeting all mile stones. Pain controlled overall, ok to use Oxycodone if needed. consult today. Resume labetalol - mild range Bps returned Labs appropriate Continue ambulation Discharge later today or tomorrow AM pending comfort (1st time mom), pain control, Bp control Time-Based Coding :: [TOTAL MINUTES] spent with patient and on the chart (including review of chart, obtaining history, exam, reviewing outside data, placing orders, documenting exam and treatment plan, and counseling patient) on [DATE].
[2024-02-20] MEDS: OXYCODONE IR 5 MG TABLET 10 MG PO (12:15)
--- NOTE | 2024-02-20 15:15 | PM.OBDS.1 ---
Discharge Providers Provider Date of admission: 02/16/24 19:06 Discharge Date: 02/20/24 Primary care physician: Chelsea Ramsay MD Consults: 02/18/24 13:43 Consult to Traveling Passenger Agent Routine Comment: 02/19/24 10:14 Consult to REPAIR ELECTRIC MOTOR ASSEMBLER - Neurophysiological Technician Routine Comment: Neurophysiological Technician Consult needed for:: Discharge provider: Coleen Viera MD Summary Hospital Course Date Patient Seen: 02/20/24 Hospital Course: Patient is a 23 yo who presented for IOL for new gHTN. complicated by CP with chronic pain, JUDI. Delivered ultimately via pCS - patient elected due to uncontrolled pain. Hospitalization uncomplicated. Lochia WNL. Voiding and ambulating normally. Pain well controlled. Eating normally. Bps controlled with PO labetalol, continue on DC. Follow-up scheduled in 3 days for BP check and 1 week for incision check. Discharge Diagnosis (1) JUDI (generalized anxiety disorder): Status: Acute (2) Gestational HTN: Status: Acute (3) S/P section: Status: Acute Time Spent with Patient Time attestation: Total time spent providing and/or coordinating discharge services: Time spent: Greater than 30 minutes Objective Labs 02/19/24 10:07 02/19/24 10:07 Exam Vital Signs (past 8 hours): Oxygen Delivery Method Room Air Discharge Plan Discharge Plan Patient Disposition: Home Discharge orders & Medications Prescriptions: New acetaminophen 325 mg Tablet 650 mg PO Q6H Qty: 60 0RF docusate sodium 100 mg Capsule 100 mg PO DAILY Qty: 30 0RF ferrous sulfate 325 mg (65 mg iron) Tablet 325 mg PO DAILY Qty: 60 0RF polyethylene glycol 3350 17 gram Powder In Packet 17 g PO DAILY Qty: 100 0RF ibuprofen 600 mg Tablet 600 mg PO Q6H Qty: 60 0RF labetalol 100 mg Tablet 200 mg PO BID Qty: 120 0RF oxycodone 5 mg Tablet 2.5 mg PO Q4HR PRN (Reason: Pain, Moderate (4-6)) Qty: 10 0RF Continued hydroxyzine pamoate [Vistaril] 25 mg capsule 25 mg PO TID PRN (Reason: for anxiety ) Qty: 60 0RF (DME) Belly band See Rx Instructions .Route .MEDSUPPLY Qty: 1 0RF Rx Instructions: Apply Belly band daily during for lumbar support cyclobenzaprine 10 mg tablet 10 mg PO BEDTIME PRN (Reason: muscle spasm) Qty: 30 0RF fluoxetine 40 mg capsule 40 mg PO DAILY Qty: 90 4RF [id number] oil 400 mcg-35 mg -25 mg-5 mg tablet,chewable PO Follow up/Referrals: Coleen Viera MD [Physician] - (Incision Check w/ Dr. Viera: February 22 @ 10:30am) Visit Report/Discharge Packet Instructions: Depression, , Hemorrhage Stand Alone Forms: Discharge: Care, Patient Portal/API, Stroke Signs & Symptoms Discharge Data Primary Care Provider: Chelsea Ramsay
[2024-02-20] MEDS: MEASLES,MUMPS,RUBELLA VACC/PF 0.5 ML VIAL SUBCUT (15:40)
[2024-02-20] MEDS: INFLUENZA VACCINE QIV 0.5 ML SYRINGE IM (15:41)
[2024-02-20 17:04] VITALS: BP 159/112; PULSE 92
[2024-02-20] MEDS: LABETALOL 100 MG TABLET PO (17:04)
== END 2024-02-20 19:25 | disposition home or self-care (01) | DRG 787 ==
PROVIDERS: Family Medicine; Admitting Provider Family Medicine; PCP Family Medicine; Referring Provider Family Medicine; Visit Provider Family Medicine
PROC: 10D00Z1 Extraction of Products of Conception, Low, Open Approach (ICD-10-PCS; CPT 59514; principal; 2024-02-18 12:00)
DX: O13.4 Gestational [pregnancy-induced] hypertension without significant proteinuria, complicating childbirth (principal); O99.354 Diseases of the nervous system complicating childbirth; G80.9 Cerebral palsy, unspecified; Z3A.39 39 weeks gestation of pregnancy; Z37.0 Single live birth; Z30.430 Encounter for insertion of intrauterine contraceptive device
CPT/HCPCS: 36415; 58300; 59050; 59200; 59510; 59514; 80053; 81001; 82570; 84156; 84550; 85025; 86850; 86900; 86901; 87491; 87591; 90471; 90656; G0378; G0379; J0136; J0690; J1100; J1200; J1885; J2250; J2274; J2405; J2590; J2790; J3010; J7298; Q2038

== ENCOUNTER 2024-02-22 19:21 | Emergency (ER) | payer OTHER, MEDICAID, SELFPAY ==
[2024-01-19 14:30] VITALS: BMI 38.6
[2024-02-22] VITALS (13 sets, daily range): BP systolic 140–162; BP diastolic 77–107; PULSE 66–97; RESP 12–25; TEMP 36.8–36.9; O2SAT 95–98; BMI 41.0
--- NOTE | 2024-02-22 20:56 | EKG_ITS ---
[address] [address] Test Date: 2024-02-22 Pat Name: Fallon Acosta Department: Room: Gender: Female Cushion Cover Inspector: ELIZA : 2000 Requested By: Order Number: [id number] Reading MD: Grady Acosta Measurements Intervals [place] Rate: 78 P: 42 NV: 134 QRS: 6 QRSD: 76 T: 68 QT: 386 QTc: 440 Interpretive Statements Normal sinus rhythm Low voltage QRS Nonspecific T wave abnormality Electronically Signed On 02-27-2024 15:20:30 PDT by Grady Acosta
[2024-02-22 20:57] LABS: Bacteria Urine Occasional (0-1); Culture Indicated Urine Specimen Cultured; RBC Urine 5-10/HPF (0-5/HPF); Squamous Epithelial Cell Urine 10-30 /HPF (0-5/HPF); Urine Volume 10mL (spun); WBC Urine 5-10/HPF (0-5/HPF)
--- NOTE | 2024-02-22 21:06 | PC.NURSE ---
Pt called from waiting room to report she started having chest pain 4/10, shortness of breath with the pain and increased swelling in bilateral feet and ankles. Pt moved to hallway bed and EKG obtained, provider notified of pt status change.
--- NOTE | 2024-02-22 21:50 | ED_ITS ---
HPI - General Adult General Chief complaint: Shortness of Breath/Dyspnea Stated complaint: had a baby t-4, fever, SOB, feeling ill Time Seen by Provider: 02/22/24 21:20 Source: patient Mode of arrival: Wheelchair History of Present Illness HPI narrative: Patient is a 23-year-old female. Who is approximately 4 days status post C- section for failure to progress/intolerance of labor. She is feeding her baby pumped breast milk. After the delivery she was found to be hypertensive. Was not diagnosed with preeclampsia. Was started on labetalol. Is supposed to take this medicine 2 times a day. She has been taking it as directed but did not take it this evening because she was felt so poorly. She did have a blood pressure check yesterday. Has a follow-up with her OB provider tomorrow. She was here because of fever, not feeling very well, lower extremity swelling, shortness of breath and several other symptoms. She denies any urinary symptoms. No vaginal discharge. Very little vaginal bleeding. She denies any breast tenderness. Related Data Home Medications Medication Instructions Recorded Confirmed [id number] 400 mcg-om3 35 mg-dha 25 tab PO 08/11/23 02/21/24 mg-epa 5 mg-fish oil chewable tablet Previous Rx's Medication Instructions Recorded Belly band #1 ea 10/13/23 hydroxyzine pamoate 25 mg capsule 25 mg PO TID PRN for anxiety #60 10/13/23 (Vistaril) caps fluoxetine 40 mg capsule 40 mg PO DAILY #90 caps 12/19/23 cyclobenzaprine 10 mg tablet 10 mg PO BEDTIME PRN muscle spasm 02/02/24 #30 tabs acetaminophen 325 mg tablet 650 mg (2 x 325 mg) PO Q6H #60 tabs 02/20/24 docusate sodium 100 mg capsule 100 mg PO DAILY #30 caps 02/20/24 ferrous sulfate 325 mg (65 mg 325 mg PO DAILY #60 tabs 02/20/24 iron) tablet ibuprofen 600 mg tablet 600 mg PO Q6H #60 tabs 02/20/24 labetalol 300 mg tablet 300 mg PO BID #60 tabs 02/20/24 oxycodone 5 mg tablet 2.5 mg (1/2 x 5 mg) PO Q4HR PRN 02/20/24 Pain, Moderate (4-6) #10 tabs polyethylene glycol 3350 17 gram 17 g PO DAILY #100 ea 02/20/24 oral powder packet fluoxetine 20 mg capsule 20 mg PO DAILY #30 caps 02/21/24 Allergies Allergy/AdvReac Type Severity Reaction Status Date / Time No Known Drug Allergies Allergy Verified 02/21/24 16:17 Review of Systems Review of Systems ROS Unobtainable: All systems reviewed & are unremarkable except as noted in HPI and below Patient History Medical History Acute cholecystitis Surgical History [place] teeth extracted History of ankle surgery History of hip surgery History of cholecystectomy (~04/2023) Family History Mother Migraines Bipolar disorder Smoker Father Bipolar disorder Cigar smoker Grandfather Diabetes mellitus Asthma Grandmother Blood clotting disorder Grandfather Heart disease Aunt Ovarian hypofunction Sister Mental health disorder Sister Epilepsy Social History marital status: number of children: 0 household members: spouse and family lives independently: Yes caregiver/support person: No housing: house pets and animals: Yes (cats & dog, family managing litter boxes) education level: high school occupational status: employed current occupational exposures/hazards: No special priya needs: No travel history: over 6 months ago seatbelt use: always water heater temp set < 120 deg: Yes working smoke detector in home: Yes fire extinguisher in home: Yes carbon monox detector in home: Yes firearms in home: No do you feel safe at home: Yes Smoking Status: Never smoker second hand exposure: No (DHEERAJ vapes, but not around pt) alcohol intake: never substance use type: marijuana during the past year weight has: remained stable well-balanced diet: rarely or never daily servings fruits/ve-1 caffeine: Yes (counseled to avoid energy drinks in favor of coffee/tea within 200 mg limit) Type(s) of exercise: walking frequency: 1-2 times per week Smoking Status: Never smoker alcohol intake frequency: holidays/special occasions only Substance Use Type: does not use Exam Initial Vital Signs Initial Vital Signs: Vital Signs Temperature 98.3 F 02/22/24 19:25 Pulse Rate 97 H 02/22/24 19:25 Respiratory Rate 18 02/22/24 19:25 Blood Pressure 162/107 H 02/22/24 19:25 Pulse Oximetry 98 02/22/24 19:25 Oxygen Delivery Method Room Air 02/22/24 19:25 Const General: cooperative, comfortable and No ill appearing HENMT Head: normal to inspection and normocephalic Resp Effort & Inspection: normal respiratory effort Auscultation: clear to auscultation bilaterally Cardio Rate: regular rate Rhythm: regular rhythm GI Inspection: normal to inspection and non-distended Palpation: soft and tender (Lower abdomen over region) Skin Other: Surgical dressing in place over . Is clean dry and intact. Neuro General: patient alert, patient awake and moves all extremities Extrem General: edema Course Orders Ordered: ED Orders 02/22/24 19:45 Urine Culture Stat Urine Microscopic Stat 02/22/24 20:56 EKG-12 Lead Stat 02/22/24 22:09 Complete Blood Count AUTO DIFF Stat 02/22/24 22:40 Comprehensive Metabolic Panel Stat LDH [Lactate Dehydrogenase] Stat Lipase Stat Discontinued Medications Hydrocodone Bitart/Acetaminophen (Hydrocodone/Acet 5/325 Prepack) 1 bottle MISC DIRECTED ONE Stop: 02/22/24 23:36 Last Admin: 02/22/24 23:40 Dose: 1 bottle Documented By: Furosemide (Furosemide 40 Mg/4 Ml Vial) 40 mg IV NOW ONE Stop: 02/22/24 23:36 Ketorolac Tromethamine (Ketorolac 30 Mg/Ml Vial) 15 mg IV NOW ONE Stop: 02/22/24 23:36 Last Admin: 02/22/24 23:40 Dose: 15 mg Documented By: Labetalol HCl (Labetalol 100 Mg Tablet) 100 mg PO NOW ONE Stop: 02/22/24 21:53 Last Admin: 02/22/24 22:02 Dose: 100 mg Documented By: Vital Signs Vital signs: Vital Signs - 8 hr 02/22/24 19:25 02/22/24 19:34 02/22/24 21:20 Temperature 98.3 F Pulse Rate 97 H 79 94 H Respiratory Rate 18 18 12 Blood Pressure 162/107 H 140/88 Pulse Oximetry 98 98 95 Oxygen Delivery Method Room Air Room Air 02/22/24 21:30 02/22/24 21:30 02/22/24 22:00 Temperature Pulse Rate 84 81 Respiratory Rate 21 25 H Blood Pressure 162/98 H Pulse Oximetry 97 96 Oxygen Delivery Method 02/22/24 22:02 02/22/24 22:07 02/22/24 22:07 Temperature Pulse Rate 93 H 78 Respiratory Rate 16 15 Blood Pressure 162/98 H 144/95 H Pulse Oximetry 96 98 Oxygen Delivery Method Room Air 02/22/24 22:30 02/22/24 22:30 02/22/24 22:45 Temperature Pulse Rate 76 77 Respiratory Rate 16 24 Blood Pressure 146/78 H Pulse Oximetry 97 96 Oxygen Delivery Method 02/22/24 22:45 02/22/24 22:53 02/22/24 23:00 Temperature Pulse Rate 66 76 Respiratory Rate 22 19 Blood Pressure 154/77 H 154/87 H Pulse Oximetry 98 96 Oxygen Delivery Method Room Air 02/22/24 23:00 02/22/24 23:30 02/22/24 23:30 Temperature Pulse Rate 82 Respiratory Rate 18 Blood Pressure 153/85 H 147/95 H Pulse Oximetry 97 Oxygen Delivery Method 02/22/24 23:53 Temperature 98.4 F Pulse Rate 68 Respiratory Rate 19 Blood Pressure 147/87 H Pulse Oximetry 98 Oxygen Delivery Method Room Air Medical Decision Making Lab Data Lab results reviewed: Yes I reviewed the patient's lab results. 02/22/24 22:09 02/22/24 22:40 Labs: Lab Results 02/22/24 02/22/24 02/22/24 Range/Units 19:45 22:09 22:40 WBC 10.1 (4.5-11.0) X10^3/uL RBC 3.62 L (4.0-5.2) X10^6/uL Hgb 10.8 L (12.0-16.0) g/dL Hct 32.0 L (36-46) % MCV 88.4 (80-100) fL MCH 29.7 (26-34) PG MCHC 33.6 (30-36) % RDW 14.4 (11.6-14.8) % Plt Count 285 (150-400) X10^3/uL Neut % (Auto) 77.9 H (50-75) % Lymph % (Auto) 15.0 L (25-40) % [place] % (Auto) 3.8 (3-14) % Eos % (Auto) 2.8 (2-4) % Baso % (Auto) 0.5 (0-2) % Neut # (Auto) 7900 H (7871-2122) /uL Lymph # (Auto) 1500 (0684-8937) /uL [place] # (Auto) 400 (0-900) /uL Eos # (Auto) 300 (0-450) /uL Baso # (Auto) 100 (0-100) /uL Sodium 135 L (137-145) mmol/L Potassium 3.9 (3.4-5.1) mmol/L Chloride 110 H (98-107) mmol/L Carbon Dioxide 19 L (22-32) mmol/L BUN 13 (7-17) mg/dL Creatinine 0.53 (0.52-1.04) mg/dL Estimated GFR > 60 (>60) mL/min BUN/Creatinine Ratio 24.5 H (6-22) Glucose 97 (70-100) mg/dL Calcium 9.6 (8.4-10.2) mg/dL Total Bilirubin 0.4 (0.2-1.3) mg/dL AST 31 (14-36) IU/L ALT 26 (<35) IU/L Alkaline Phosphatase 158 H (38-126) U/L Lactate Dehydrogenase 250 H (120-246) U/L Total Protein 6.6 (6.3-8.2) g/dL Albumin 3.3 L (3.5-5.0) g/dL Globulin 3.3 (1.7-4.1) g/dL Albumin/Globulin Ratio 1.0 (1.0-2.8) Lipase 45 (23-300) U/L Urine RBC 5-10/hpf H (0-5/HPF) Urine WBC 5-10/hpf H (0-5/HPF) Ur Squamous Epith Cells 10-30 /hpf H (0-5/HPF) Urine Bacteria Occasional (0-1) (None) Ur Culture Indicated? Specimen cultured Vol Urine Centrifuged 10ml (spun) Urine Dip Bedside Urine Glucose Negative Bedside Urine Bilirubin - Negative Bedside Urine Ketone - Negative Urine Specific [place] 1.015 Bedside Urine Occult Blood +++ Bedside Urine pH 7.0 Bedside Urine Protein - Negative Bedside Urine Urobilinogen - Negative Bedside Urine Nitrite - Negative Bedside Urine Leukocytes - Negative Esterase Point of care testing: Urine Dip Bedside Urine Glucose Negative Bedside Urine Bilirubin - Negative Bedside Urine Ketone - Negative Urine Specific [place] 1.015 Bedside Urine Occult Blood +++ Bedside Urine pH 7.0 Bedside Urine Protein - Negative Bedside Urine Urobilinogen - Negative Bedside Urine Nitrite - Negative Bedside Urine Leukocytes - Negative Esterase ECG Data Attestation: I personally reviewed and interpreted this ECG as follows: Interpretation: Sinus rhythm Ventricular rate is 78 Normal axis Normal QRS Nonspecific ST T wave changes MDM Narrative Medical decision making narrative: Patient is well-appearing. He was afebrile. Labs are unremarkable. LFTs unremarkable. Platelets normal. She was hypertensive upon arrival. She was given a dose of her labetalol which did improve blood pressure slightly but still was persistently in the 150s. She does have lower extremity edema. There was no specific source of infection found. Low suspicion for pneumonia, surgical site infection, endometritis, urinary tract infection. I did discuss the case with Dr. Nichols on-call for OB who does not recommend any specific changes to her medications as of now and did not recommend admission to the hospital.. Patient does have a prescription for oxycodone at home but she states this medication makes her very drowsy and she does not like to take it. Will attempt to switch this to hydrocodone to try to help her discomfort that she was having. She was having quite a bit of lower extremity swelling advised that she get up and move around and try to mobilize some of this fluid. Advised that she keep her follow-up appointment with her OB provider that is scheduled within the next 24 hours. She was given return precautions Discharge Plan Departure Patient Disposition: Home Clinical Impression: hypertension Activity Restrictions/Additional Instructions: I do recommend that you keep your follow-up appointment with your OB provider that is already scheduled for tomorrow. Continue to take your blood pressure medications as directed. You can continue to breastfeed. The hydrocodone as needed for discomfort. Return to the emergency department for new symptoms. Prescriptions: No Action hydroxyzine pamoate [Vistaril] 25 mg capsule 25 mg PO TID PRN (Reason: for anxiety ) Qty: 60 0RF (DME) Belly band See Rx Instructions .Route .MEDSUPPLY Qty: 1 0RF Rx Instructions: Apply Belly band daily during for lumbar support cyclobenzaprine 10 mg tablet 10 mg PO BEDTIME PRN (Reason: muscle spasm) Qty: 30 0RF fluoxetine 20 mg capsule 20 mg PO DAILY Qty: 30 1RF fluoxetine 40 mg capsule 40 mg PO DAILY Qty: 90 4RF [id number] oil 400 mcg-35 mg -25 mg-5 mg tablet,chewable PO acetaminophen 325 mg Tablet 650 mg PO Q6H Qty: 60 0RF docusate sodium 100 mg Capsule 100 mg PO DAILY Qty: 30 0RF ferrous sulfate 325 mg (65 mg iron) Tablet 325 mg PO DAILY Qty: 60 0RF polyethylene glycol 3350 17 gram Powder In Packet 17 g PO DAILY Qty: 100 0RF ibuprofen 600 mg Tablet 600 mg PO Q6H Qty: 60 0RF oxycodone 5 mg Tablet 2.5 mg PO Q4HR PRN (Reason: Pain, Moderate (4-6)) Qty: 10 0RF labetalol 300 mg tablet 300 mg PO BID Qty: 60 0RF Rx Instructions: dose switch - please fill 300 mg BID NOT 200 mg BID Referrals: Chelsea Ramsay MD [Primary Care Provider] - Stand Alone Forms: Patient Portal/API
[2024-02-22] MEDS: LABETALOL 100 MG TABLET PO (22:02)
[2024-02-22 22:16] LABS: Add Manual Diff / Slide Review NO; Basophils Absolute Auto 100 /uL (0-100); Basophils Percent Auto 0.5 % (0-2); Eosinophils Absolute Auto 300 /uL (0-450); Eosinophils Percent Auto 2.8 % (2-4); Hemoglobin 10.8 g/dL (12.0-16.0); Lymphocytes Absolute Auto 1500 /uL (1100-4500); Mean Corpuscular HGB Conc 33.6 % (30-36); Mean Corpuscular Hemoglobin 29.7 PG (26-34); Mean Corpuscular Volume 88.4 fL (80-100); Monocytes Absolute Auto 400 /uL (0-900); Monocytes Percent Auto 3.8 % (3-14); Neutrophils Absolute Auto 7900 /uL (1500-7000); Neutrophils Percent Auto 77.9 % (50-75); Platelet Count 285 X10^3/uL (150-400); Red Blood Cell Count 3.62 X10^6/uL (4.0-5.2); Red Cell Distribution Width 14.4 % (11.6-14.8); White Blood Cell Count 10.1 X10^3/uL (4.5-11.0)
--- NOTE | 2024-02-22 22:54 | PC.NURSE ---
Pt up to BR using WC and one person assist.
[2024-02-22 23:07] LABS: Alanine Aminotransferase 26 IU/L (<35); Albumin 3.3 g/dL (3.5-5.0); Alkaline Phosphatase 158 U/L (38-126); Aspartate Aminotransferase 31 IU/L (14-36); BUN Creatinine Ratio 24.5 (6-22); Bilirubin Total 0.4 mg/dL (0.2-1.3); Blood Urea Nitrogen 13 mg/dL (7-17); Calcium 9.6 mg/dL (8.4-10.2); Carbon Dioxide 19 mmol/L (22-32); Chloride 110 mmol/L (98-107); Estimated Glomerular Filt Rate > 60 mL/min (>60); Globulin 3.3 g/dL (1.7-4.1); Glucose 97 mg/dL (70-100); HEMOLYSIS < 15 (0-50); Lipase 45 U/L (23-300); Potassium 3.9 mmol/L (3.4-5.1); Sodium 135 mmol/L (137-145); Total Protein 6.6 g/dL (6.3-8.2)
[2024-02-22 23:19] LABS: Lactate Dehydrogenase 250 U/L (120-246)
[2024-02-22] MEDS: HYDROCODONE/ACET 5/325 PREPACK 1 BOTTLE MISC (23:40)
[2024-02-22] MEDS: KETOROLAC 30 MG/ML VIAL 15 MG IV (23:40)
== END 2024-02-22 23:55 | disposition home or self-care (01) ==
PROVIDERS: Emergency Provider Emergency Medicine; PCP Family Medicine
DX: O16.5 Unspecified maternal hypertension, complicating the puerperium (principal); R50.9 Fever, unspecified
CPT/HCPCS: 36415; 80053; 81003; 81015; 83615; 83690; 85025; 87086; 93005; 96374; 99284; J1885

== ENCOUNTER → 2024-03-12 17:08 | Outpatient (CLI) | payer OTHER, MEDICAID, SELFPAY ==
[2024-03-12 16:39] VITALS: BMI 38.6
[2024-03-12 18:03] LABS: Add Manual Diff / Slide Review NO; Basophils Absolute Auto 100 /uL (0-100); Basophils Percent Auto 0.7 % (0-2); Eosinophils Absolute Auto 300 /uL (0-450); Eosinophils Percent Auto 3.5 % (2-4); Hematocrit 39.4 % (36-46); Hemoglobin 13.7 g/dL (12.0-16.0); Lymphocytes Absolute Auto 2600 /uL (1100-4500); Lymphocytes Percent Auto 30.1 % (25-40); Mean Corpuscular HGB Conc 34.7 % (30-36); Mean Corpuscular Hemoglobin 30.5 PG (26-34); Mean Corpuscular Volume 87.8 fL (80-100); Monocytes Absolute Auto 500 /uL (0-900); Monocytes Percent Auto 5.7 % (3-14); Neutrophils Absolute Auto 5100 /uL (1500-7000); Platelet Count 379 X10^3/uL (150-400); Red Blood Cell Count 4.49 X10^6/uL (4.0-5.2); Red Cell Distribution Width 13.6 % (11.6-14.8); White Blood Cell Count 8.6 X10^3/uL (4.5-11.0)
[2024-03-12 18:37] LABS: Alanine Aminotransferase 22 IU/L (<35); Albumin 4.1 g/dL (3.5-5.0); Albumin Globulin Ratio 1.2 (1.0-2.8); Alkaline Phosphatase 116 U/L (38-126); Aspartate Aminotransferase 26 IU/L (14-36); BUN Creatinine Ratio 25.6 (6-22); Bilirubin Total 0.3 mg/dL (0.2-1.3); Blood Urea Nitrogen 20 mg/dL (7-17); Calcium 9.4 mg/dL (8.4-10.2); Carbon Dioxide 24 mmol/L (22-32); Chloride 104 mmol/L (98-107); Estimated Glomerular Filt Rate > 60 mL/min (>60); Globulin 3.4 g/dL (1.7-4.1); Glucose 77 mg/dL (70-100); HEMOLYSIS < 15 (0-50); Potassium 4.2 mmol/L (3.4-5.1); Sodium 136 mmol/L (137-145); Total Protein 7.5 g/dL (6.3-8.2)
== END ==
LOC: LAB 17:10
PROVIDERS: PCP Family Medicine; Referring Provider Family Medicine; Visit Provider Family Medicine
DX: T81.89XA Other complications of procedures, not elsewhere classified, initial encounter (principal); R42 Dizziness and giddiness; R55 Syncope and collapse
CPT/HCPCS: 36415; 80053; 85025